=== PATIENT | male | born 1940 | race Caucasian/White ===

== ENCOUNTER 2019-08-04 19:17 | Inpatient (IN) ==
[2019-08-04] MEDS ORDERED: MULTI-VITAMIN INFUSION 10 ML, THIAMINE HCL 100 MG, FOLIC ACID 1 MG in SODIUM CHLORIDE 0... IV ONE (19:40)
[2019-08-04 19:59] LABS: Basophils # (auto) 0.06 K/uL (0-0.2); Eosinophils # (auto) 0.12 K/uL (0-0.5); Eosinophils % (auto) 1.9 %; Hematocrit (blood only) 42.9 % (42-52); Hemoglobin 14.9 g/dL (14.0-18.0); Immature Granulocytes # (auto) 0.01 K/uL (0.00-0.02); Immature Granulocytes % (auto) 0.2 %; Lymphocytes # (auto) 1.21 K/uL (1.2-3.4); Lymphocytes % (auto) 19.6 %; Mean Corpuscular Hemoglobin 31.9 pg (25-34); Mean Corpuscular Hgb Conc 34.7 g/dL (32-36); Mean Corpuscular Volume 91.9 fL (80-100); Mean Platelet Volume 10.1 fL (7.4-10.4); Monocytes # (auto) 0.37 K/uL (0.11-0.59); Neutrophils # (auto) 4.39 K/uL (1.4-6.5); Neutrophils % (auto) 71.3 %; Platelet Count 222 K/uL (130-400); RDW Coefficient of Variation 13.1 % (11.5-14.5); RDW Standard Deviation 43.8 fL (36.4-46.3); Red Blood Count 4.67 M/uL (4.7-6.1); White Blood Count 6.16 K/uL (4.8-10.8)
[2019-08-04 20:09] LABS: Prothrombin Time 10.7 Seconds (9.0-12.0)
[2019-08-04] MEDS ORDERED: fentaNYL citrate 100 MCG/2 ML VIAL IV STA (20:10)
[2019-08-04 20:15] LABS: Alanine Aminotransferase 32 U/L (12-78); Albumin Level 3.6 gm/dl (3.4-5.0); Aspartate Aminotransferase 21 U/L (15-37); BUN Creatinine Ratio 17.9 (10-20); Blood Urea Nitrogen 18 mg/dl (7-18); Calcium 8.6 mg/dl (8.5-10.1); Carbon Dioxide 27 mmol/L (21-32); Chloride 113 mmol/L (98-107); Creatinine Clr Calc Pharmacy 61.6 ml/min; Est GFR (African American) 81.2; Est GFR (Non-African American) 70.1; Glucose 106 mg/dl (70-99); Lipase 260 U/L (73-393); Magnesium 2.5 mg/dl (1.8-2.4); Sodium 147 mmol/L (136-145)
[2019-08-04 20:21] LABS: Albumin Globulin Ratio 1.2 (0.9-2); Alkaline Phosphatase 68 U/L (45-117); Bilirubin,Total 0.5 mg/dl (0.2-1); Globulin 3.1 gm/dl (2.5-4.0); Phosphorus 2.4 mg/dl (2.5-4.9); Total Protein 6.7 gm/dl (6.4-8.2); Troponin I < 0.015 ng/ml (0-0.045)
--- NOTE | 2019-08-04 20:59 | XRay Report ---
XR chest 1V portable CLINICAL HISTORY: Chest pain. Fall. COMPARISON STUDY: Chest radiograph August 19, 2015. FINDINGS: Dual lead left subclavian pacemaker is in place. There is mild cardiomegaly without evidenc e for pulmonary edema. There is no consolidation. There is no pneumothorax or pleural effusion. IMPRESSION: No acute cardiopulmonary findings. Electronically signed by: Denzel Leavitt M.D. 08/04/2019 8:58 PM
--- NOTE | 2019-08-04 21:11 | XRay Report ---
XR tibia fibula RT 2V CLINICAL HISTORY: pain fall COMPARISON: None FINDINGS: No proximal right tibial or fibular fracture is noted. Alignment of the right knee is pablito omic. Displaced angulated distal right tibial and fibular fractures with disruption of the ankle mort ise are better depicted on the right ankle radiographs. IMPRESSION: 1. Displaced angulated distal right tibial and fibular fractures with disruption of the ankle mortise which are better depicted on the right ankle radiographs. 2. No proximal right tibial or fibular fracture. Electronically signed by: Denzel Leavitt M.D. 08/04/2019 9:10 PM
--- NOTE | 2019-08-04 21:13 | XRay Report ---
XR ankle RT min 3V routine CLINICAL HISTORY: Pain following fall. COMPARISON: Right foot radiographs June 16, 2014. FINDINGS: Ankle mortise is disrupted. There is an acute displaced angulated fracture through the dis sue shaft of the right fibula. A fracture through the posterior distal right tibia is also noted. In addition, there may be a fracture through the medial malleolus. IMPRESSION: Fracture/dislocation deformity of the right ankle. Displaced angulated distal right fibul ar fracture with a fracture through the posterior malleolus and possible medial malleolus fracture. Electronically signed by: Denzel Leavitt M.D. 08/04/2019 9:12 PM
--- NOTE | 2019-08-04 21:15 | XRay Report ---
XR foot RT 2V CLINICAL HISTORY: Pain following fall. COMPARISON: Right foot radiographs June 16, 2014. FINDINGS: Displaced distal right tibial and fibular fractures with disruption of the ankle mortise a re better depicted on the right ankle radiographs. Tarsometatarsal joints are intact. There is a heal ed right fifth metatarsal fracture. 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 IMPRESSION: 1. Fracture/dislocation deformity of the right ankle which is better depicted on the right ankle radi ographs. 2. No additional fractures. Electronically signed by: Denzel Leavitt M.D. 08/04/2019 9:14 PM
[2019-08-04] MEDS ORDERED: THIAMINE HCL 100 MG in SYRINGE 9 ML IV STA (21:34)
[2019-08-04] MEDS ORDERED: SODIUM CHLORIDE 0.9% 1000ML 1,000 ML IV SCH (21:45)
--- NOTE | 2019-08-04 21:47 | CT Scan Report ---
CT OF THE HEAD WITHOUT CONTRAST CLINICAL HISTORY: etoh fall, pain COMPARISON STUDY: Head CT August 19, 2015. MRI of the brain July 12, 2019. CT DOSE: 1007.61 mGy.cm TECHNIQUE: Helical axial images of the head were obtained without IV contrast. Automated exposure con trol was utilized for the study. A dose lowering technique was utilized adhering to the principles o f ALARA. FINDINGS: No acute intracranial hemorrhage, midline shift or mass effect is present. The ventricular system is stable. Basilar cisterns are patent. There are no extra axial collections. Atrophy is again noted. There are no findings to suggest acute dural sinus thrombosis or acute territorial infarct. W jaison matter hypodensity suggests small vessel disease. The appearance of the brain is unchanged. Ther e is no calvarial fracture. IMPRESSION: 1. No acute intracranial findings. 2. No calvarial fracture. Electronically signed by: Denzel Leavitt M.D. 08/04/2019 9:46 PM
--- NOTE | 2019-08-04 21:56 | XRay Report ---
XR ankle RT min 3V routine CLINICAL HISTORY: post reduction COMPARISON: Right ankle radiographs August 04, 2019 at 8:30 PM. FINDINGS: These images demonstrate significant improvement in alignment of the right ankle fracture/ dislocation deformity. Alignment of the distal right fibular fracture as well as the posterior malleo iwona fracture has improved. There is mild residual ankle mortise widening. IMPRESSION: Significant interval improvement in alignment of the right ankle fracture/dislocation sin ce prior exam. Electronically signed by: Denzel Leavitt M.D. 08/04/2019 9:55 PM
--- NOTE | 2019-08-04 22:01 | CT Scan Report ---
CT OF THE CERVICAL SPINE WITHOUT CONTRAST CLINICAL HISTORY: etoh fall, pain COMPARISON STUDY: No previous studies for comparison. TECHNIQUE: Helical axial images of the cervical spine were obtained without IV contrast. Sagittal a nd coronal reconstructions were viewed. Automated exposure control was utilized for the study. A do se lowering technique was utilized adhering to the principles of ALARA. FINDINGS: Mild rotation of C1 on C2 is likely positional. No acute fracture is noted. The craniocervi abdi junction is intact. There is moderate multilevel degenerative disc disease and severe multilevel facet arthrosis within the cervical spine. There is no prevertebral edema. IMPRESSION: 1. No acute cervical spine fracture or subluxation. 2. Moderate multilevel degenerative disc disease and severe multilevel facet arthrosis within the cer vical spine. 3. Mild rotation of C1 on C2 is likely positional. Electronically signed by: Denzel Laevitt M.D. 08/04/2019 10:00 PM
--- NOTE | 2019-08-04 23:52 | History & Physical Report ---
Date of Service August 04, 2019 Assessment & Plan (1) Closed trimalleolar fracture: Likely secondary to mechanical fall secondary to alcoholism Status post closed reduction at that emergency room dementia/cognitive impairment 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 as per recent outpatient Neuro eval SSS sp PPM, paced rhythm, appropriate device function/longevity on recent outpatient [facility] cardio visit 05/2019 HTN, stable history PE/DVT status post Coumadin Medical telemetry given history of alcohol withdrawal Orthopedics consult RE right ankle fracture (ER provider already in touch with Dr. Werner.) Keep n.p.o. for now in anticipation of any procedure in a.m. No medical contraindication to surgery if recommended by Orthopedics and patient/family agreeable to attendant procedural benefits and risks. DT precautions DVT prophylaxis. SCDs for now RE possible surgery (Recommend pharmacologic anticoagulation postop with Lovenox 40 mg subcutaneous daily given past history PE/DVT once bleeding risk is deemed to be minimal and negligible following Orthopedics evaluation.) Full code as per . Patient's requesting updates from providers. Mrs.Tara Gordon, contact #[phone]. History of Present Illness Chief Complaint: Fall, right ankle pain Primary Care Provider: Valentin Sutherland MD History obtained from patient, family, and records. History somewhat limited from patient secondary to dementia. Medical history significant for dementia, SSS sp PPM, HTN, history PE status post Coumadin, ongoing alcohol abuse. Recent confinement July 2015 for alcohol withdrawal. Patient found on the floor by upon her arrival at home. Complaining right ankle pain after falling sometime in the afternoon. Patient does not think he passed out. Patient denies chest pain, S OB, headache symptoms. Closed reduction of right ankle fracture done at the emergency room. 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 Baseline Functionality : Still able to do yard work at home without rest/exertional chest pain, S OB prior to injury Allergies Allergy/AdvReac Type Severity Reaction Status Date / Time No Known Allergies Allergy Unverified 08/04/19 20:13 Home Medications Home Medications Medication Instructions Recorded Confirmed Type atorvastatin [Lipitor] 20 mg PO DAILY 08/04/19 08/04/19 History metoprolol tartrate 75 mg PO BID 08/04/19 08/04/19 History multivitamin 1 tab PO DAILY 08/04/19 08/04/19 History naltrexone 50 mg PO DAILY 08/04/19 08/04/19 History vitamin B complex 1 tab PO DAILY 08/04/19 08/04/19 History Past Med/Surg History Medical History Bilateral pulmonary embolism (Resolved 06/16/14) "completed 6 months Coumadin therapy" DVT (deep venous thrombosis) (Resolved) "completed 6 months Coumadin therapy" SSS (sick sinus syndrome) (Chronic) "s/p pacemaker 03/2015" Ankle fracture, right (Resolved) "s/p repair" Alcohol withdrawal delirium (Acute) Surgical History S/P left knee arthroscopy (Resolved) H/O vasectomy (Resolved) Social History Preferred Language: Divehi Communication Ability: Effective Communication Ability Comment: has been drinking [place] Required: No Beliefs That Will Affect Care: None Current Living Situation: Spouse Other Information That Helps Us Care for You: No Feels Safe at Home: Yes Safety Concerns: Feels Safe At This Time Smoking Status: Former smoker Do You Dip or Chew Tobacco: No ; Hx Alcohol Use: Yes Alcohol type: wine and hard liquor Hx Substance Use: No Review of Systems Review of Systems: Could not be reliably obtained Physical Exam Physical Exam: GENERAL: Comfortable, demented, no respiratory distress SKIN: Normal color, warm HEENT: [place] palpebral conjunctivae, no ptosis, dry buccal mucosa NECK : Supple, no tenderness CHEST : CTA, no tenderness HEART : RRR, systolic murmur ABDOMEN: Soft, nontender EXTREMITIES : RLE bandage, minimal RLE tenderness, no other conspicuous deformities noted NEUROLOGIC : Coherent, demented, slightly hard of hearing, no facial asymmetry, no other gross focality Results & Data Vital Signs (Past 12 Hours) Vital Signs Temp Pulse Resp BP Pulse Ox 08/04/19 23:00 72 15 123/83 95 08/04/19 22:31 71 14 94 08/04/19 22:30 71 12 125/91 94 08/04/19 22:17 71 18 129/94 94 08/04/19 22:00 36.7 C 71 22 129/94 96 08/04/19 21:01 71 15 97 08/04/19 21:00 71 21 137/96 99 08/04/19 20:31 71 17 93 08/04/19 20:30 71 16 122/93 95 08/04/19 20:01 70 12 93 08/04/19 20:00 69 13 128/92 94 08/04/19 19:56 94 08/04/19 19:31 72 20 93 08/04/19 19:30 72 12 127/94 95 08/04/19 19:28 73 12 95 08/04/19 19:27 36.7 C 81 20 136/105 H 96 08/04/19 19:25 75 15 136/105 H 98 Laboratory Results Laboratory Results WBC 6.16 K/uL (4.8-10.8) 08/04/19 19:50 RBC 4.67 M/uL (4.7-6.1) L 08/04/19 19:50 Hgb 14.9 g/dL (14.0-18.0) 08/04/19 19:50 Hct 42.9 % (42-52) 08/04/19 19:50 MCV 91.9 fL (80-100) 08/04/19 19:50 MCH 31.9 pg (25-34) 08/04/19 19:50 MCHC 34.7 g/dL (32-36) 08/04/19 19:50 RDW Std Deviation 43.8 fL (36.4-46.3) 08/04/19 19:50 RDW Coeff of Carina 13.1 % (11.5-14.5) 08/04/19 19:50 Plt Count 222 K/uL (130-400) 08/04/19 19:50 MPV 10.1 fL (7.4-10.4) 08/04/19 19:50 Immature Gran % (Auto) 0.2 % 08/04/19 19:50 Neut % (Auto) 71.3 % 08/04/19 19:50 Lymph % (Auto) 19.6 % 08/04/19 19:50 [place] % (Auto) 6.0 % 08/04/19 19:50 Eos % (Auto) 1.9 % 08/04/19 19:50 Baso % (Auto) 1.0 % 08/04/19 19:50 Immature Gran # (Auto) 0.01 K/uL (0.00-0.02) 08/04/19 19:50 Neut # (Auto) 4.39 K/uL (1.4-6.5) 08/04/19 19:50 Lymph # (Auto) 1.21 K/uL (1.2-3.4) 08/04/19 19:50 [place] # (Auto) 0.37 K/uL (0.11-0.59) 08/04/19 19:50 Eos # (Auto) 0.12 K/uL (0-0.5) 08/04/19 19:50 Baso # (Auto) 0.06 K/uL (0-0.2) 08/04/19 19:50 PT 10.7 Seconds (9.0-12.0) 08/04/19 19:50 INR 1.0 (0.9-1.1) 08/04/19 19:50 Sodium 147 mmol/L (136-145) H 08/04/19 19:50 Potassium 4.0 mmol/L (3.5-5.1) 08/04/19 19:50 Chloride 113 mmol/L (98-107) H 08/04/19 19:50 Carbon Dioxide 27 mmol/L (21-32) 08/04/19 19:50 Anion Gap 7.0 (3-11) 08/04/19 19:50 BUN 18 mg/dl (7-18) 08/04/19 19:50 Creatinine 1.02 mg/dl (0.6-1.4) 08/04/19 19:50 Est Cr Clr Drug Dosing 61.6 ml/min 08/04/19 19:50 Est GFR ( Amer) 81.2 08/04/19 19:50 Est GFR (Non-Af Amer) 70.1 08/04/19 19:50 BUN/Creatinine Ratio 17.9 (10-20) 08/04/19 19:50 Glucose 106 mg/dl (70-99) H 08/04/19 19:50 Calcium 8.6 mg/dl (8.5-10.1) 08/04/19 19:50 Phosphorus 2.4 mg/dl (2.5-4.9) L 08/04/19 19:50 Magnesium 2.5 mg/dl (1.8-2.4) H 08/04/19 19:50 Total Bilirubin 0.5 mg/dl (0.2-1) 08/04/19 19:50 AST 21 U/L (15-37) 08/04/19 19:50 ALT 32 U/L (12-78) 08/04/19 19:50 Alkaline Phosphatase 68 U/L (45-117) 08/04/19 19:50 Troponin I < 0.015 ng/ml (0-0.045) 08/04/19 19:50 Total Protein 6.7 gm/dl (6.4-8.2) 08/04/19 19:50 Albumin 3.6 gm/dl (3.4-5.0) 08/04/19 19:50 Globulin 3.1 gm/dl (2.5-4.0) 08/04/19 19:50 Albumin/Globulin Ratio 1.2 (0.9-2) 08/04/19 19:50 Lipase 260 U/L (73-393) 08/04/19 19:50 Ethyl Alcohol mg/dL 227.0 mg/dl (0-3) H 08/04/19 20:19 Diagnostic Findings Right ankle x-ray: Fracture/dislocation deformity of the right ankle. Displaced angulated distal right fibular fracture with a fracture through the posterior malleolus and possible medial malleolus fracture. CT head: 1. No acute intracranial findings. 2. No calvarial fracture. Cervical spine CT: 1. No acute cervical spine fracture or subluxation. 2. Moderate multilevel degenerative disc disease and severe multilevel facet arthrosis within the cervical spine. 3. Mild rotation of C1 on C2 is likely positional. Chest x-ray : No acute cardiopulmonary findings. EKG as per my interpretation : Rate 70, paced rhythm (1) Closed trimalleolar fracture Encounter type: initial encounter Laterality: right Qualified Code(s): S82.851A - Displaced trimalleolar fracture of right lower leg, initial encounter for closed fracture
[2019-08-05] MEDS ORDERED: NITROGLYCERIN SL 0.4 MG/TAB TAB SL PRN (00:46)
[2019-08-05] MEDS ORDERED: ACETAMINOPHEN 325 MG TAB PO PRN (00:46)
[2019-08-05] MEDS ORDERED: KETOROLAC TROMETHAMINE 15 MG/ML VIAL IV PRN (00:46)
[2019-08-05] MEDS ORDERED: LORazepam 2 MG/4 ML VIAL IV PRN (00:46)
[2019-08-05] MEDS ORDERED: OXYCODONE HCL IR 5 MG TAB (IMMEDIATE RELEASE) PO PRN (00:46)
[2019-08-05] MEDS ORDERED: PROMETHAZINE HCL 12.5 MG in SODIUM CHLORIDE 0.9% 50 ML IV PRN (00:46)
[2019-08-05] MEDS ORDERED: ATIVAN IV ALCOHOL WITHDRAWL IV SCH (00:46)
[2019-08-05] MEDS ORDERED: GABAPENTIN 1200MG ALCOHOL WITHDRAWAL LOAD PO STA (00:46)
[2019-08-05] MEDS ORDERED: LORazepam 3 MG/6 ML VIAL IV PRN (00:46)
[2019-08-05] MEDS ORDERED: LORazepam 1 MG/2 ML VIAL IV PRN (00:46)
[2019-08-05] MEDS ORDERED: GABAPENTIN 600 MG TAB PO STA (01:07)
[2019-08-05 01:44] LABS: Creatine Kinase 106 U/L (39-308)
[2019-08-05] MEDS ORDERED: PNEUMOCOCCAL ADMINISTRATION CHARGE ONE (02:30)
[2019-08-05] MEDS ORDERED: PNEUMOCOCCAL POLYSACCHARIDES 25 MCG/0.5 ML VIAL/SYR IM ONE (02:30)
[2019-08-05] MEDS: METOPROLOL TARTRATE 50 MG TAB PO SCH ×2 (02:54→19:55)
[2019-08-05] MEDS ORDERED: SODIUM CHLORIDE 0.45 % 1,000 ML IV SCH (03:00)
--- NOTE | 2019-08-05 03:18 | Emergency Department Note ---
Entered by Becca Eckert acting as a scribe for Terry Valle MD History of Present Illness General Chief complaint: Fall Stated complaint: FALL, R ANKLE PAIN, Time Seen by Provider: 08/04/19 19:32 Source: patient and family () History of Present Illness Provider complaint: ankle pain Onset (ago): minute(s) (prior to arrival) Location: ankle and right Maximum Pain Intensity: 4 Quality: + other (ankle pain) Treatments prior to arrival: none The patient, who is a 79 year old male with a medical history of DVT, SSS, and pulmonary embolism presents to the Emergency Room with complaints of right ankle pain that the states occurred at 1600. The patient admits that he is not sober. The patient's states that she came home and found him in his chair and not oriented. The patient's expresses that he talked to her for 20 minutes before he complained about his ankle pain. The patient states that he is unsure of the events that led to his ankle injury. The patient states that the patient has been through detox 3 times with the most recent being in 2017. The patient's states that he has been through withdraw that included shakes but no seizure. The patient's HPI is limited secondary to alcohol intoxication. Home Medications Home Medications Medication Instructions Recorded Confirmed Type atorvastatin [Lipitor] 20 mg PO DAILY 08/04/19 08/04/19 History metoprolol tartrate 75 mg PO BID 08/04/19 08/04/19 History multivitamin 1 tab PO DAILY 08/04/19 08/04/19 History naltrexone 50 mg PO DAILY 08/04/19 08/04/19 History vitamin B complex 1 tab PO DAILY 08/04/19 08/04/19 History Allergies Allergy/AdvReac Type Severity Reaction Status Date / Time No Known Allergies Allergy Unverified 08/04/19 20:13 Past Med/Surg History Medical History Bilateral pulmonary embolism (Resolved 06/16/14) "completed 6 months Coumadin therapy" DVT (deep venous thrombosis) (Resolved) "completed 6 months Coumadin therapy" SSS (sick sinus syndrome) (Chronic) "s/p pacemaker 03/2015" Ankle fracture, right (Resolved) "s/p repair" Alcohol withdrawal delirium (Acute) Surgical History S/P left knee arthroscopy (Resolved) H/O vasectomy (Resolved) Social History Preferred Language: Faroese Communication Ability: Effective Communication Ability Comment: has been drinking [employer] Required: No Beliefs That Will Affect Care: None Current Living Situation: Spouse Other Information That Helps Us Care for You: No Feels Safe at Home: Yes Safety Concerns: Feels Safe At This Time Smoking Status: Former smoker Do You Dip or Chew Tobacco: No ; Hx Alcohol Use: Yes Alcohol type: wine and hard liquor Hx Substance Use: No Review of Systems See HPI for pertinent positives & negatives. and A total of 10 systems reviewed and were otherwise negative Physical Exam Vital Signs Vital Signs - 24 hr 08/04/19 19:25 08/04/19 19:27 08/04/19 19:28 Temperature 36.7 C Temperature Source Oral Sepsis Recent Fever Within 48 Hours No Sepsis Action Taken by Nursing No Action Required Pulse Rate 75 81 73 Pulse Rate from SpO2 Sensor 77 73 Pulse Rhythm Regular Pulse Strength Normal Respiratory Rate 15 20 12 Respiratory Effort / Characteristics Non-Labored Spontaneous Respiratory Depth Normal Blood Pressure 136/105 H 136/105 H Blood Pressure Mean 115 115 Blood Pressure Position Sitting Pulse Oximetry 98 96 95 Oxygen Delivery Method Room Air Room Air Room Air 08/04/19 19:30 08/04/19 19:31 08/04/19 19:56 Temperature Temperature Source Sepsis Recent Fever Within 48 Hours Sepsis Action Taken by Nursing Pulse Rate 72 72 Pulse Rate from SpO2 Sensor 73 72 Pulse Rhythm Pulse Strength Respiratory Rate 12 20 Respiratory Effort / Characteristics Respiratory Depth Blood Pressure 127/94 Blood Pressure Mean 105 Blood Pressure Position Pulse Oximetry 95 93 94 Oxygen Delivery Method Room Air Room Air Room Air 08/04/19 20:00 08/04/19 20:01 08/04/19 20:30 Temperature Temperature Source Sepsis Recent Fever Within 48 Hours Sepsis Action Taken by Nursing Pulse Rate 69 70 71 Pulse Rate from SpO2 Sensor 70 70 72 Pulse Rhythm Pulse Strength Respiratory Rate 13 12 16 Respiratory Effort / Characteristics Respiratory Depth Blood Pressure 128/92 122/93 Blood Pressure Mean 104 102 Blood Pressure Position Pulse Oximetry 94 93 95 Oxygen Delivery Method Room Air Room Air Room Air 08/04/19 20:31 08/04/19 21:00 08/04/19 21:01 Temperature Temperature Source Sepsis Recent Fever Within 48 Hours Sepsis Action Taken by Nursing Pulse Rate 71 71 71 Pulse Rate from SpO2 Sensor 71 72 71 Pulse Rhythm Pulse Strength Respiratory Rate 17 21 15 Respiratory Effort / Characteristics Respiratory Depth Blood Pressure 137/96 Blood Pressure Mean 109 Blood Pressure Position Pulse Oximetry 93 99 97 Oxygen Delivery Method Room Air Room Air Room Air 08/04/19 22:00 08/04/19 22:17 08/04/19 22:30 Temperature 36.7 C Temperature Source Sepsis Recent Fever Within 48 Hours Sepsis Action Taken by Nursing Pulse Rate 71 71 71 Pulse Rate from SpO2 Sensor 71 71 69 Pulse Rhythm Pulse Strength Respiratory Rate 22 18 12 Respiratory Effort / Characteristics Respiratory Depth Blood Pressure 129/94 129/94 125/91 Blood Pressure Mean 105 105 102 Blood Pressure Position Pulse Oximetry 96 94 94 Oxygen Delivery Method Room Air Room Air Room Air 08/04/19 22:31 08/04/19 23:00 08/04/19 23:30 Temperature Temperature Source Sepsis Recent Fever Within 48 Hours Sepsis Action Taken by Nursing Pulse Rate 71 72 71 Pulse Rate from SpO2 Sensor 71 73 Pulse Rhythm Pulse Strength Respiratory Rate 14 15 14 Respiratory Effort / Characteristics Respiratory Depth Blood Pressure 123/83 116/80 Blood Pressure Mean 96 92 Blood Pressure Position Pulse Oximetry 94 95 96 Oxygen Delivery Method Room Air Room Air Room Air GENERAL: Awake, alert, uncomfortable-appearing, in no distress HENT: Normocephalic, atraumatic. Oropharynx with dry mucous membranes and otherwise unremarkable. EYES: Normal conjunctiva. Sclera non-icteric. EOMI. No nystamgus. PEARRL. NECK: Supple. No nuchal rigidity. FROM. No JVD. RESPIRATORY: CTAB. CARDIAC: Regular rate, normal rhythm. Extremities warm and well perfused. Pulses equal. ABDOMEN: Soft, non-distended. No tenderness to palpation. No rebound or guarding. No masses. RECTAL: Deferred. MUSCULOSKELETAL: Chest examination reveals no tenderness. The back is symmetrical on inspection without obvious abnormality. There is no CVA tenderness to palpation. No joint edema. LOWER EXTREMITIES: Right ankle deformity with swelling and with tenting of sking of medial malleolus. Palpable DP pulses. Distal PMS intact. Full range of motion to the hips and knees bilaterally. NEURO: Normal sensorium. No sensory or motor deficits noted. SKIN: No rash or jaundice noted. Procedures Orthopedic Fracture Reduction Fracture #1: Time Out Performed: Yes Side: right Fracture Reduction Location: other (ankle) Analgesia: other (IV fentanol) Technique: direct manipulation and traction/counter-traction Post Reduction X-rays Demonstrate: acceptable reduction Post-reduction neuro exam: intact Post-reduction vascular exam: intact Splint Applied: Yes Patient Tolerated Procedure: well Course 1935: Past medical records reviewed. The patient was evaluated in room C4. A complete history and physical exam was performed. 2253: I reviewed the patient's case with Jesus Goins Hospitalist. He will evaluate the patient for further management. 2258: I reviewed the patient's case with Dr. Werner, Orthopedics who will evaluate the patient in the morning. Consultations Consultation #1: [facility] the [facility] the patient for further management. Time: 22:53 Consultation #2: I reviewed the patient's case with Dr. Werner, Orthopedics who will evaluate the patient in the morning. Time: 22:58 Administered Medications Sodium Chloride (1/2 Nss) 1,000 mls @ 50 mls/hr IV .Q20H FUNMI Stop: 09/04/19 02:59 Last Admin: 08/05/19 02:34 Dose: 50 mls/hr Documented by: [id number] Metoprolol Tartrate (Lopressor) 75 mg PO BID FUNMI Stop: 09/04/19 00:45 Last Admin: 08/05/19 02:54 Dose: 75 mg Documented by: [id number] Discontinued Medications Fentanyl Citrate (Fentanyl Citrate) 100 mcg IV NOW STA Stop: 08/04/19 20:11 Last Admin: 08/04/19 20:51 Dose: 100 mcg Documented by: [id number] Gabapentin (Neurontin) 1,200 mg PO NOW STA Stop: 08/05/19 01:08 Last Admin: 08/05/19 01:53 Dose: 1,200 mg Documented by: [id number] Multivitamins 10 ml/ Thiamine HCl 100 mg/ Folic Acid 1 mg/Sodium Chloride 1,011.2 mls @ 1,011.2 mls/hr IV .Q1H ONE Stop: 08/04/19 20:39 Last Infusion: 08/04/19 21:16 Dose: 0 mls/hr Documented by: [id number] Admin: 08/04/19 20:16 Dose: 1,011.2 mls/hr Documented by: [id number] Sodium Chloride (Nss 1000ml) 1,000 mls @ 250 mls/hr IV .Q4H FUNMI Stop: 09/03/19 21:44 Last Infusion: 08/05/19 02:48 Dose: 0 mls/hr Documented by: [id number] Admin: 08/04/19 22:01 Dose: 250 mls/hr Documented by: [id number] Thiamine HCl 100 mg/ Syringe 10 mls @ 2 mls/min IV NOW STA Stop: 08/04/19 21:38 Last Admin: 08/04/19 22:02 Dose: 2 mls/min Documented by: [id number] Medical Decision Making Differential Diagnosis Differential diagnosis includes: fracture, dislocation, neurovascular compromise, compartment syndrome, soft tissue injury, as well as others were entertained. Medical Records Attestation: I reviewed the patient's medical records. Home Medications Current Medication List: was personally reviewed by me Laboratory Data Attestation: I reviewed the patient's lab results. Result diagrams: 08/04/19 19:50 08/04/19 19:50 Lab Results 08/04/19 08/04/19 08/04/19 Range/Units 19:50 19:50 19:50 WBC 6.16 (4.8-10.8) K/uL RBC 4.67 L (4.7-6.1) M/uL Hgb 14.9 (14.0-18.0) g/dL Hct 42.9 (42-52) % MCV 91.9 (80-100) fL MCH 31.9 (25-34) pg MCHC 34.7 (32-36) g/dL RDW Std Deviation 43.8 (36.4-46.3) fL RDW Coeff of Carina 13.1 (11.5-14.5) % Plt Count 222 (130-400) K/uL MPV 10.1 (7.4-10.4) fL Immature Gran % (Auto) 0.2 % Neut % (Auto) 71.3 % Lymph % (Auto) 19.6 % Cameron % (Auto) 6.0 % Eos % (Auto) 1.9 % Baso % (Auto) 1.0 % Immature Gran # (Auto) 0.01 (0.00-0.02) K/uL Neut # (Auto) 4.39 (1.4-6.5) K/uL Lymph # (Auto) 1.21 (1.2-3.4) K/uL Cameron # (Auto) 0.37 (0.11-0.59) K/uL Eos # (Auto) 0.12 (0-0.5) K/uL Baso # (Auto) 0.06 (0-0.2) K/uL PT 10.7 (9.0-12.0) Seconds INR 1.0 (0.9-1.1) Sodium 147 H (136-145) mmol/L Potassium 4.0 (3.5-5.1) mmol/L Chloride 113 H (98-107) mmol/L Carbon Dioxide 27 (21-32) mmol/L Anion Gap 7.0 (3-11) BUN 18 (7-18) mg/dl Creatinine 1.02 (0.6-1.4) mg/dl Est Cr Clr Drug Dosing 61.6 ml/min Est GFR ( Amer) 81.2 Est GFR (Non-Af Amer) 70.1 BUN/Creatinine Ratio 17.9 (10-20) Glucose 106 H (70-99) mg/dl Calcium 8.6 (8.5-10.1) mg/dl Phosphorus 2.4 L (2.5-4.9) mg/dl Magnesium 2.5 H (1.8-2.4) mg/dl Total Bilirubin 0.5 (0.2-1) mg/dl AST 21 (15-37) U/L ALT 32 (12-78) U/L Alkaline Phosphatase 68 (45-117) U/L Total Creatine Kinase 106 (39-308) U/L Troponin I < 0.015 (0-0.045) ng/ml Total Protein 6.7 (6.4-8.2) gm/dl Albumin 3.6 (3.4-5.0) gm/dl Globulin 3.1 (2.5-4.0) gm/dl Albumin/Globulin Ratio 1.2 (0.9-2) Lipase 260 (73-393) U/L Ethyl Alcohol mg/dL (0-3) mg/dl 08/04/19 Range/Units 20:19 WBC (4.8-10.8) K/uL RBC (4.7-6.1) M/uL Hgb (14.0-18.0) g/dL Hct (42-52) % MCV (80-100) fL MCH (25-34) pg MCHC (32-36) g/dL RDW Std Deviation (36.4-46.3) fL RDW Coeff of Carina (11.5-14.5) % Plt Count (130-400) K/uL MPV (7.4-10.4) fL Immature Gran % (Auto) % Neut % (Auto) % Lymph % (Auto) % Cameron % (Auto) % Eos % (Auto) % Baso % (Auto) % Immature Gran # (Auto) (0.00-0.02) K/uL Neut # (Auto) (1.4-6.5) K/uL Lymph # (Auto) (1.2-3.4) K/uL Cameron # (Auto) (0.11-0.59) K/uL Eos # (Auto) (0-0.5) K/uL Baso # (Auto) (0-0.2) K/uL PT (9.0-12.0) Seconds INR (0.9-1.1) Sodium (136-145) mmol/L Potassium (3.5-5.1) mmol/L Chloride (98-107) mmol/L Carbon Dioxide (21-32) mmol/L Anion Gap (3-11) BUN (7-18) mg/dl Creatinine (0.6-1.4) mg/dl Est Cr Clr Drug Dosing ml/min Est GFR ( Amer) Est GFR (Non-Af Amer) BUN/Creatinine Ratio (10-20) Glucose (70-99) mg/dl Calcium (8.5-10.1) mg/dl Phosphorus (2.5-4.9) mg/dl Magnesium (1.8-2.4) mg/dl Total Bilirubin (0.2-1) mg/dl AST (15-37) U/L ALT (12-78) U/L Alkaline Phosphatase (45-117) U/L Total Creatine Kinase (39-308) U/L Troponin I (0-0.045) ng/ml Total Protein (6.4-8.2) gm/dl Albumin (3.4-5.0) gm/dl Globulin (2.5-4.0) gm/dl Albumin/Globulin Ratio (0.9-2) Lipase (73-393) U/L Ethyl Alcohol mg/dL 227.0 H (0-3) mg/dl Imaging Data Radiologist's Impression: Radiology results as stated below per my review and the radiologist's interpretation: XR ankle RT min 3V routine CLINICAL HISTORY: Pain following fall. COMPARISON: Right foot radiographs June 16, 2014. FINDINGS: Ankle mortise is disrupted. There is an acute displaced angulated fracture through the distal shaft of the right fibula. A fracture through the posterior distal right tibia is also noted. In addition, there may be a fracture through the medial malleolus. IMPRESSION: Fracture/dislocation deformity of the right ankle. Displaced angulated distal right fibular fracture with a fracture through the posterior malleolus and possible medial malleolus fracture. Electronically signed by: Denzel Leavitt M.D. 08/04/2019 9:12 PM XR tibia fibula RT 2V CLINICAL HISTORY: pain fall COMPARISON: None FINDINGS: No proximal right tibial or fibular fracture is noted. Alignment of the right knee is anatomic. Displaced angulated distal right tibial and fibular fractures with disruption of the ankle mortise are better depicted on the right ankle radiographs. IMPRESSION: 1. Displaced angulated distal right tibial and fibular fractures with disruption of the ankle mortise which are better depicted on the right ankle radiographs. 2. No proximal right tibial or fibular fracture. Electronically signed by: Denzel Leavitt M.D. 08/04/2019 9:10 PM XR foot RT 2V CLINICAL HISTORY: Pain following fall. COMPARISON: Right foot radiographs June 16, 2014. FINDINGS: Displaced distal right tibial and fibular fractures with disruption of the ankle mortise are better depicted on the right ankle radiographs. Tarsometatarsal joints are intact. There is a healed right fifth metatarsal fracture. 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 IMPRESSION: 1. Fracture/dislocation deformity of the right ankle which is better depicted on the right ankle radiographs. 2. No additional fractures. Electronically signed by: Denzel Leavitt M.D. 08/04/2019 9:14 PM XR chest 1V portable CLINICAL HISTORY: Chest pain. Fall. COMPARISON STUDY: Chest radiograph August 19, 2015. FINDINGS: Dual lead left subclavian pacemaker is in place. There is mild cardiomegaly without evidence for pulmonary edema. There is no consolidation. There is no pneumothorax or pleural effusion. IMPRESSION: No acute cardiopulmonary findings. Electronically signed by: Denzel Leavitt M.D. 08/04/2019 8:[address] OF THE CERVICAL SPINE WITHOUT CONTRAST CLINICAL HISTORY: etoh fall, pain COMPARISON STUDY: No previous studies for comparison. TECHNIQUE: Helical axial images of the cervical spine were obtained without IV contrast. Sagittal and coronal reconstructions were viewed. Automated exposure control was utilized for the study. A dose lowering technique was utilized adhering to the principles of ALARA. FINDINGS: Mild rotation of C1 on C2 is likely positional. No acute fracture is noted. The craniocervical junction is intact. There is moderate multilevel degenerative disc disease and severe multilevel facet arthrosis within the cervical spine. There is no prevertebral edema. IMPRESSION: 1. No acute cervical spine fracture or subluxation. 2. Moderate multilevel degenerative disc disease and severe multilevel facet arthrosis within the cervical spine. 3. Mild rotation of C1 on C2 is likely positional. Electronically signed by: Denzel Leavitt M.D. 08/04/2019 10:[address] OF THE HEAD WITHOUT CONTRAST CLINICAL HISTORY: etoh fall, pain COMPARISON STUDY: Head CT August 19, 2015. MRI of the brain July 12, 2019. CT DOSE: 1007.61 mGy.cm TECHNIQUE: Helical axial images of the head were obtained without IV contrast. Automated exposure control was utilized for the study. A dose lowering technique was utilized adhering to the principles of ALARA. FINDINGS: No acute intracranial hemorrhage, midline shift or mass effect is present. The ventricular system is stable. Basilar cisterns are patent. There are no extra axial collections. Atrophy is again noted. There are no findings to suggest acute dural sinus thrombosis or acute territorial infarct. White matter hypodensity suggests small vessel disease. The appearance of the brain is unchanged. There is no calvarial fracture. IMPRESSION: 1. No acute intracranial findings. 2. No calvarial fracture. Electronically signed by: Denzel Leavitt M.D. 08/04/2019 9:46 PM XR ankle RT min 3V routine CLINICAL HISTORY: post reduction COMPARISON: Right ankle radiographs August 04, 2019 at 8:30 PM. FINDINGS: These images demonstrate significant improvement in alignment of the right ankle fracture/dislocation deformity. Alignment of the distal right fibular fracture as well as the posterior malleolus fracture has improved. There is mild residual ankle mortise widening. IMPRESSION: Significant interval improvement in alignment of the right ankle fracture/dislocation since prior exam. Electronically signed by: Denzel Leavitt M.D. 08/04/2019 9:55 PM ECG Data Attestation: I personally reviewed and interpreted this ECG as follows: Indication: other (fall) Rate (beats per minute): 70 Rhythm: other (AV dual pace rhythm) Findings: + other (No overt acute ischemia); no ectopy Blood Pressure Blood Pressure Findings: Normal blood pressure MDM Narrative The patient is a 79 y/o gentleman with a pmhx of etoh abuse, dependence, withdrawal who presents to the emergency department acommpanied by his with unwitnessed fall with right ankle deformity and pain per HPI. On arrival the patient is in NAD, AFVSS. On exam, right ankle deformity with swelling and with tenting of skin of medial malleolus. Palpable DP pulses. Distal PMS intact. Despite deformity patient does not complain of much pain given his etoh intoxication. EKG without evidence of acute ischemia. CXR negative. Plain films of Tib-fib, ankle, and foot demonstrate displaced angulated distal right fibular fracture with a fracture through the posterior malleolus and possible medial malleolus fracture. WBC, H/H, platelets wnl. Chemistry without acidosis. Sodium 147 c/w patient's clinically dry appearance. Otherwise, LFTs and electrolytes unremarkable. Troponin negative. Etoh 227. CT head and cspine negative. Ankle reduced per procedure note without complication and improved alignment with resolution of skin tenting. Distal PMS intact. Given patient's ankle fracture is complicated by his etoh dependence, reasonable to admit patient for further management. Patient reports he is interested in detox this admission. Case was discussed with Dr. Bill, [facility] hospitalist, who will evaluate the patient for admission. Case d/w Dr. Delgadillo, [facility] ortho oncall, and [facility] will evaluate patient tomorrow. Impression & Plan Closed trimalleolar fracture, Hypernatremia, Alcohol dependence Discharge Plan Visit Data *Final* Discharge Date/Time: 08/05/19 00:16 Chief Complaint: Fall Stated Complaint: FALL, R ANKLE PAIN, ED Provider: Terry Valle Discharge Problem: Closed trimalleolar fracture, Hypernatremia, Alcohol dependence Patient Disposition: Admitted As Inpatient Discharge Instructions Interventions: ED Discharge Assessment Last Done: 08/05/19 00:16 Discharge Problem: Closed trimalleolar fracture Qualifiers: Encounter type: initial encounter Laterality: right Qualified Code(s): S82.851A - Displaced trimalleolar fracture of right lower leg, initial encounter for closed fracture Alcohol dependence Qualifiers: Substance use status: with intoxication Complication of substance-induced condition: with unspecified complication Qualified Code(s): F10.229 - Alcohol dependence with intoxication, unspecified The scribe's documentation has been prepared under my direction and personally reviewed by me in its entirety. I confirm that the note above accurately reflects all work, treatment, procedures, and medical decision making performed by me.
[2019-08-05 06:15] LABS: Basophils # (auto) 0.04 K/uL (0-0.2); Basophils % (auto) 0.5 %; Eosinophils # (auto) 0.25 K/uL (0-0.5); Eosinophils % (auto) 2.9 %; Hematocrit (blood only) 36.1 % (42-52); Hemoglobin 13.1 g/dL (14.0-18.0); Immature Granulocytes # (auto) 0.01 K/uL (0.00-0.02); Immature Granulocytes % (auto) 0.1 %; Lymphocytes # (auto) 1.83 K/uL (1.2-3.4); Mean Corpuscular Hemoglobin 33.8 pg (25-34); Mean Corpuscular Hgb Conc 36.3 g/dL (32-36); Mean Platelet Volume 9.9 fL (7.4-10.4); Monocytes # (auto) 0.55 K/uL (0.11-0.59); Monocytes % (auto) 6.3 %; Neutrophils # (auto) 6.04 K/uL (1.4-6.5); Neutrophils % (auto) 69.2 %; Platelet Count 193 K/uL (130-400); RDW Coefficient of Variation 13.3 % (11.5-14.5); RDW Standard Deviation 45.1 fL (36.4-46.3); Red Blood Count 3.88 M/uL (4.7-6.1); White Blood Count 8.72 K/uL (4.8-10.8)
[2019-08-05 06:23] LABS: Calcium 7.8 mg/dl (8.5-10.1); Creatinine Clr Calc Pharmacy 71.4 ml/min; Est GFR (African American) 95.4; Est GFR (Non-African American) 82.3; Potassium 3.8 mmol/L (3.5-5.1)
[2019-08-05] MEDS: MULTIVITAMIN TAB PO SCH (08:04)
[2019-08-05] MEDS: GABAPENTIN 600 MG TAB PO SCH ×3 (08:05→19:56)
[2019-08-05] MEDS: ATORVASTATIN 20 MG TAB PO SCH (08:05)
[2019-08-05] MEDS: FOLIC ACID 1 MG TAB PO SCH (08:05)
[2019-08-05] MEDS: VITAMIN B COMPLEX TAB PO SCH (08:06)
[2019-08-05] MEDS: NALTREXONE HCL 50 MG TAB PO SCH (08:06)
--- NOTE | 2019-08-05 09:30 | Orthopedic Consultation ---
Date of Consultation August 05, 2019 Assessment & Plan (1) Closed trimalleolar fracture: He has a severe injury to his right ankle with a trimalleolar equivalent ankle fracture dislocation. This will require ORIF for optimal function in the future and the ability to ambulate. However, this is a difficult medical situation. He is at high risk for alcohol withdrawal and delirium tremens. He currently does not have any tremors or agitation, but I am worried that this might develop. He has other significant medical problems, including a pacemaker placement and history of DVT with PE. He also has very poor insight into his injury. I had a long discussion with the patient's regarding all this. We therefore mutually agreed to observe him throughout the day today to see if he goes into significant withdraw. If he does, we will have to delay his surgery a few days. If he does not, we could plan to fix his ankle tomorrow. I stressed to the patient and his however that he must remain nonweightbearing on this right ankle after the surgery, or there would be a high risk of hardware failure, which could lead to severe complications. I think this will be the main issue after surgery due to his cognitive impairment and poor insight. Risks, benefits, and alternatives of surgery were explained in detail. The surgical procedure, as well as postoperative recovery and rehabilitation, was also explained in detail. Risks include bleeding; infection; damage to surro unding structures such as nerves, blood vessels, and tendons that run in the area; persistent pain or stiffness; nonunion; malunion; hardware failure; post- traumatic arthritis; painful prominent hardware requiring removal; or need for further surgery. He and the patient's understand all of this and wish to proceed with surgery. Verbal consent was obtained over the phone with the patient's due to the patient's disorientation. History of Present Illness Reason for Consultation: Right ankle fracture Attending Physician: Chai Craig MD History of Present Illness Mr. Gordon is a 79-year-old male with a long history of alcohol abuse who injured his right ankle yesterday. It is unknown the exact mechanism of injury. The patient has no recollection of the injury whatsoever. He was intoxicated at the time. He is disoriented currently, saying it is 1985 and he has no idea of the month, date, or day of the week. He is unaware of any significant injury to his right ankle, and thinks he is fine. I spoke with the patient's , Camila De La Cruz ([phone]), to get more information. She stated that she came home from work around 6:00 last night and found him in his recliner. He had an obvious injury to his right ankle, but she is unsure of where the patient fell or when. She states that he has had a long history of alcohol abuse. He has been through hospital detoxification and delirium tremens at least 4 times in the past, each hospitalization lasting around 10 days. She states that he does have cognitive impairment at baseline, and normally cannot remember the date or day of week, but he usually knows the month and year. She says that normally when he drinks, he drinks around 20 alcoholic drinks in a day, usually hard liquor. She says that he will often go for a few weeks without drinking, then drink on and off very heavily for about a week and a half. Allergies Allergy/AdvReac Type Severity Reaction Status Date / Time No Known Allergies Allergy Unverified 08/04/19 20:13 Home Medications Home Medications Medication Instructions Recorded Confirmed Type atorvastatin [Lipitor] 20 mg PO DAILY 08/04/19 08/04/19 History metoprolol tartrate 75 mg PO BID 08/04/19 08/04/19 History multivitamin 1 tab PO DAILY 08/04/19 08/04/19 History naltrexone 50 mg PO DAILY 08/04/19 08/04/19 History vitamin B complex 1 tab PO DAILY 08/04/19 08/04/19 History Patient History Medical History Bilateral pulmonary embolism (Resolved 06/16/14) "completed 6 months Coumadin therapy" DVT (deep venous thrombosis) (Resolved) "completed 6 months Coumadin therapy" SSS (sick sinus syndrome) (Chronic) "s/p pacemaker 03/2015" Ankle fracture, right (Resolved) "s/p repair" Alcohol withdrawal delirium (Acute) Surgical History S/P left knee arthroscopy (Resolved) H/O vasectomy (Resolved) Social History Preferred Language: Trinidadian Communication Ability: Effective Communication Ability Comment: 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 He is not aware of his location. He knows he is in the hospital, but does not know which hospital. He is unaware of the year, saying it is 1985. He has no idea of the month, date, or day of week. He is unaware of any significant injury to his right ankle. Musculoskeletal: Examination of his right ankle reveals that a well molded splint is in place. He denies any discomfort in the splint. Foot is warm and well-perfused. Motor and sensory function is intact in the superficial peroneal, deep peroneal, and tibial nerve distributions. Compartments are soft and compressible. Results & Data Vital Signs (Past 12 Hours) Vital Signs Temp Pulse Pulse Resp BP BP BP 08/05/19 07:37 36.8 C 75 20 147/91 H 08/05/19 03:59 36.6 C 72 16 131/79 08/05/19 00:16 70 14 123/80 08/05/19 00:15 36.5 C 71 20 147/94 H 144/100 H 08/04/19 23:30 71 14 116/80 08/04/19 23:00 72 15 123/83 08/04/19 22:31 71 14 08/04/19 22:30 71 12 125/91 08/04/19 22:17 71 18 129/94 08/04/19 22:00 36.7 C 71 22 129/94 Pulse Ox 08/05/19 07:37 96 08/05/19 03:59 95 08/05/19 00:16 94 08/05/19 00:15 97 08/04/19 23:30 96 08/04/19 23:00 95 08/04/19 22:31 94 08/04/19 22:30 94 08/04/19 22:17 94 08/04/19 22:00 96 Radiology: Pre-and post reduction x-rays were reviewed. They show a trimalleolar equivalent ankle fracture dislocation. He has disruption of the deltoid ligament, but no medial malleolar fracture fracture. He has a large posterior malleolar fracture. He has a long oblique fibula fracture. He has good reduction of the joint and acceptable alignment of the fracture after reduction in the emergency department. (1) Closed trimalleolar fracture Encounter type: initial encounter Laterality: right Qualified Code(s): S82.851A - Displaced trimalleolar fracture of right lower leg, initial encounter for closed fracture
[2019-08-05] MEDS ORDERED: LORazepam 0.5 MG TAB PO PRN (09:40)
[2019-08-05] MEDS: HEPARIN SOD 5,000 UNIT/0.5 ML VIAL SQ SCH ×2 (13:27→19:56)
--- NOTE | 2019-08-05 18:28 | Hospitalist Progress Note ---
Date of Service August 05, 2019 Assessment & Plan (1) Closed trimalleolar fracture: Likely secondary to mechanical fall secondary to alcoholism Status post closed reduction at that emergency room Status post casting -Discussed with orthopedic surgery service Plan for possible surgical intervention ORIF tomorrow No medical contraindication for planned surgical procedure unless patient exhibits overt alcohol withdrawal/delirium tremens overnight Alcoholism Last drink was yesterday, alcohol level 200s -No overt signs and symptoms of withdrawal at this time Closely monitor -Continue alcohol withdrawal protocol including gabapentin protocol, PRN Ativan dementia/cognitive impairment 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 as per recent outpatient Neuro eval -Oriented x3, answers most questions appropriately SSS sp PPM, paced rhythm - appropriate device function/longevity on recent outpatient [facility] [place] cardio visit 05/2019 HTN, stable -Continue metoprolol history PE/DVT status post Coumadin -Start heparin subcutaneous, hold at 12 midnight for possible surgery tomorrow morning DVT prophylaxis SCDs and heparin to be held at midnight (Recommend pharmacologic anticoagulation postop with Lovenox 40 mg subcutaneous daily given past history PE/DVT once bleeding risk is deemed to be minimal and negligible following Orthopedics evaluation.) Subjective Follow-up for trimalleolar ankle fracture/dislocation Seen resting in bed, comfortable, oriented x3, answers most questions appropriately Reports minimal pain on the right ankle and foot Denies chest pain, shortness of breath, palpitations, dizziness Denies tremors, anxiety, hallucinations, sweating No other symptoms Review of Systems Review of Systems: All systems reviewed & are unremarkable except as noted in HPI & below Physical Exam Physical Exam: General- oriented x 3, not in distress, speaks in sentences with no effort or accessory muscle use Head- atraumatic Eyes- PERRL, EOMI, anicteric ENT- oropharynx clear Neck- supple, no JVD, no adenopathy, no thyromegaly; carotids +2/2, no bruits appreciated Lungs- clear to auscultation bilaterally, no rales/wheezes Heart- normal rate, regular rhythm; no murmur, no gallop, no rub appreciated Abdomen- normal bowel sounds, nondistended, soft, nontender, no masses or hepatosplenomegaly Extremities-right lower extremity: Cast in place Left lower extremity: Essentially normal No hand tremors Neuro- alert, oriented x 3; CN 2-12 grossly intact; motor 5/5 bilaterally;sensation 100% on all extremities; no other gross focal neurologic deficits Skin- warm & dry Results & Data Vital Signs (Past 12 Hours) Vital Signs Temp Pulse Pulse Resp BP Pulse Ox 08/05/19 16:25 36.6 C 72 18 162/98 H 96 08/05/19 15:00 70 08/05/19 11:48 36.3 C L 70 20 106/68 94 08/05/19 07:37 36.8 C 75 20 147/91 H 96 Laboratory Results Laboratory Results - last 24 hr 08/04/19 08/04/19 08/04/19 19:50 19:50 19:50 WBC 6.16 RBC 4.67 L Hgb 14.9 Hct 42.9 MCV 91.9 MCH 31.9 MCHC 34.7 RDW Std Deviation 43.8 RDW Coeff of Carina 13.1 Plt Count 222 MPV 10.1 Immature Gran % (Auto) 0.2 Neut % (Auto) 71.3 Lymph % (Auto) 19.6 [place] % (Auto) 6.0 Eos % (Auto) 1.9 Baso % (Auto) 1.0 Immature Gran # (Auto) 0.01 Neut # (Auto) 4.39 Lymph # (Auto) 1.21 [place] # (Auto) 0.37 Eos # (Auto) 0.12 Baso # (Auto) 0.06 PT 10.7 INR 1.0 Sodium 147 H Potassium 4.0 Chloride 113 H Carbon Dioxide 27 Anion Gap 7.0 BUN 18 Creatinine 1.02 Est Cr Clr Drug Dosing 61.6 Est GFR ( Amer) 81.2 Est GFR (Non-Af Amer) 70.1 BUN/Creatinine Ratio 17.9 Glucose 106 H Calcium 8.6 Phosphorus 2.4 L Magnesium 2.5 H Total Bilirubin 0.5 AST 21 ALT 32 Alkaline Phosphatase 68 Total Creatine Kinase 106 Troponin I < 0.015 Total Protein 6.7 Albumin 3.6 Globulin 3.1 Albumin/Globulin Ratio 1.2 Lipase 260 Ethyl Alcohol mg/dL Blood Type Antibody Screen 08/04/19 08/05/19 08/05/19 20:19 05:21 05:21 WBC 8.72 RBC 3.88 L Hgb 13.1 L Hct 36.1 L MCV 93.0 MCH 33.8 MCHC 36.3 H RDW Std Deviation 45.1 RDW Coeff of Carina 13.3 Plt Count 193 MPV 9.9 Immature Gran % (Auto) 0.1 Neut % (Auto) 69.2 Lymph % (Auto) 21.0 [place] % (Auto) 6.3 Eos % (Auto) 2.9 Baso % (Auto) 0.5 Immature Gran # (Auto) 0.01 Neut # (Auto) 6.04 Lymph # (Auto) 1.83 [place] # (Auto) 0.55 Eos # (Auto) 0.25 Baso # (Auto) 0.04 PT INR Sodium 148 H Potassium 3.8 Chloride 116 H Carbon Dioxide 28 Anion Gap 5.0 BUN 15 Creatinine 0.88 Est Cr Clr Drug Dosing 71.4 Est GFR ( Amer) 95.4 Est GFR (Non-Af Amer) 82.3 BUN/Creatinine Ratio 17.0 Glucose 79 Calcium 7.8 L Phosphorus Magnesium Total Bilirubin AST ALT Alkaline Phosphatase Total Creatine Kinase Troponin I Total Protein Albumin Globulin Albumin/Globulin Ratio Lipase Ethyl Alcohol mg/dL 227.0 H Blood Type Antibody Screen 08/05/19 08/05/19 08/05/19 05:21 05:21 13:45 WBC RBC Hgb Hct MCV MCH MCHC RDW Std Deviation RDW Coeff of Carina Plt Count MPV Immature Gran % (Auto) Neut % (Auto) Lymph % (Auto) [place] % (Auto) Eos % (Auto) Baso % (Auto) Immature Gran # (Auto) Neut # (Auto) Lymph # (Auto) [place] # (Auto) Eos # (Auto) Baso # (Auto) PT INR Sodium 145 Potassium Chloride Carbon Dioxide Anion Gap BUN Creatinine Est Cr Clr Drug Dosing Est GFR ( Amer) Est GFR (Non-Af Amer) BUN/Creatinine Ratio Glucose Calcium Phosphorus 2.6 Magnesium Total Bilirubin AST ALT Alkaline Phosphatase Total Creatine Kinase Troponin I Total Protein Albumin Globulin Albumin/Globulin Ratio Lipase Ethyl Alcohol mg/dL Blood Type A Positive Antibody Screen NEGATIVE 08/05/19 17:45 WBC RBC Hgb Hct MCV MCH MCHC RDW Std Deviation RDW Coeff of Carina Plt Count MPV Immature Gran % (Auto) Neut % (Auto) Lymph % (Auto) [place] % (Auto) Eos % (Auto) Baso % (Auto) Immature Gran # (Auto) Neut # (Auto) Lymph # (Auto) [place] # (Auto) Eos # (Auto) Baso # (Auto) PT INR Sodium 143 Potassium Chloride Carbon Dioxide Anion Gap BUN Creatinine Est Cr Clr Drug Dosing Est GFR ( Amer) Est GFR (Non-Af Amer) BUN/Creatinine Ratio Glucose Calcium Phosphorus Magnesium Total Bilirubin AST ALT Alkaline Phosphatase Total Creatine Kinase Troponin I Total Protein Albumin Globulin Albumin/Globulin Ratio Lipase Ethyl Alcohol mg/dL Blood Type Antibody Screen (1) Closed trimalleolar fracture Encounter type: initial encounter Laterality: right Qualified Code(s): S82.851A - Displaced trimalleolar fracture of right lower leg, initial encounter for closed fracture
[2019-08-05] MEDS: NSS + 20MEQ KCL 20 MEQ/1,000 ML BAG IV SCH (19:54)
[2019-08-06] MEDS: GABAPENTIN 600 MG TAB PO SCH ×2 (05:42→14:13)
[2019-08-06] MEDS ORDERED: ONDANSETRON INJ 2 MG/ML 2 ML VIAL ONE (06:55)
[2019-08-06] MEDS ORDERED: fentaNYL citrate 100 MCG/2 ML VIAL ONE ×3 (06:55→13:06)
[2019-08-06] MEDS ORDERED: LIDOCAINE HCL 2% 2 ML VIAL/AMP(20MG/ML) INFIL ONE (06:55)
[2019-08-06] MEDS ORDERED: CISATRACURIUM BESYLATE IV SOLN 2 MG/ML 10 ML VIAL IV ONE (06:55)
[2019-08-06] MEDS ORDERED: PROPOFOL IV EMULSION 10 MG/ML 20 ML VIAL IV ONE (06:55)
[2019-08-06] MEDS ORDERED: MIDAZOLAM HCL 1 MG/ML 2ML VIAL ONE (06:55)
[2019-08-06] MEDS ORDERED: DEXAMETHASONE SOD INJ 4 MG/ML VIAL ONE (06:55)
[2019-08-06] MEDS ORDERED: ROPIVACAINE 0.5% 5 MG/ML 30 ML VIAL ONE (07:34)
[2019-08-06] MEDS ORDERED: EPINEPHrine INJ 1 MG/ML AMP ONE (07:35)
--- NOTE | 2019-08-06 07:50 | History & Physical Bridge Note ---
Date of Service August 06, 2019 History & Physical Bridge Note I have examined the patient, reviewed the History & Physical and in the interval since the performance of the History & Physical. I have noted the following changes of clinical significance: Patient is now oriented. He is aware of the year and month, which is improved since yesterday. He is aware of the surgical procedure, and agrees to proceed.
--- NOTE | 2019-08-06 08:03 | Anesthesiology Consultation ---
Date of Service August 06, 2019 Assessment & Plan Chart Review Chart Review: Acceptable Risk for Surgery and Patient NOT seen in Pre Admission Testing Consults Requested none ASA ASA4 Proposed Anesthesia Anesthesia Type: General Regional Regional Laterality: Right Site: Popliteal and Adductor Canal History Surgery Operation Date: 08/06/19 07:30 Proposed Procedures p Open Reduction Internal Fixation Right Ankle Fracture(Right) - Vasyl Werner M.D. Height/Weight Height: 5 ft 10 in Weight: 82.9 kg Allergies Allergy/AdvReac Type Severity Reaction Status Date / Time No Known Allergies Allergy Unverified 08/04/19 20:13 Medications Home Medications Medication Instructions Recorded Confirmed Last Taken atorvastatin [Lipitor] 20 mg PO DAILY 08/04/19 08/04/19 Unknown metoprolol tartrate 75 mg PO BID 08/04/19 08/04/19 Unknown multivitamin 1 tab PO DAILY 08/04/19 08/04/19 Unknown naltrexone 50 mg PO DAILY 08/04/19 08/04/19 Unknown vitamin B complex 1 tab PO DAILY 08/04/19 08/04/19 Unknown Active Medications Generic Name Dose Route Start Last Admin Trade Name Freq PRN Reason Stop Dose Admin Atorvastatin Calcium 20 mg 08/05/19 09:00 08/05/19 08:05 Lipitor PO 09/04/19 08:59 20 mg DAILY FUNMI Administration Folic Acid 1 mg 08/05/19 09:00 08/05/19 08:05 Folvite PO 09/04/19 08:59 1 mg QAM FUNMI Administration Gabapentin 600 mg 08/05/19 22:00 08/06/19 05:42 Neurontin PO 08/06/19 14:01 600 mg Q8H FUNMI Administration Potassium Chloride/Sodium Chloride 20 meq in 1,000 mls @ 60 mls/hr 08/05/19 19:00 08/06/19 07:16 Normal Saline W/20 Meq Kcl IV 09/04/19 18:59 0 mls/hr .[id number] FUNMI Infusion Ketorolac Tromethamine 10 mg 08/05/19 00:46 08/05/19 20:02 Toradol IV 08/10/19 00:45 10 mg Q6H PRN Administration Pain Metoprolol Tartrate 75 mg 08/05/19 00:46 08/05/19 19:55 Lopressor PO 09/04/19 00:45 75 mg BID FUNMI Administration Multivitamins 1 tab 08/05/19 09:00 08/05/19 08:04 Multivitamin Tab PO 09/04/19 08:59 1 tab DAILY FUNMI Administration Naltrexone HCl 50 mg 08/05/19 09:00 08/05/19 08:06 Naltrexone Hcl PO 09/04/19 08:59 50 mg DAILY FUNMI Administration Vitamin B Complex 1 tab 08/05/19 09:00 08/05/19 08:06 Vitamin B Complex PO 09/04/19 08:59 1 tab DAILY FUNMI Administration NPO Date Last Intake of Fluids: 08/05/19 Time Last Intake of Fluids: 23:00 Date Last Intake of Solids: 08/05/19 Time Last Intake of Solids: 18:00 Past Medical History Medical History Bilateral pulmonary embolism (Resolved 06/16/14) "completed 6 months Coumadin therapy" DVT (deep venous thrombosis) (Resolved) "completed 6 months Coumadin therapy" SSS (sick sinus syndrome) (Chronic) "s/p pacemaker 03/2015" Ankle fracture, right (Resolved) "s/p repair" Alcohol withdrawal delirium (Acute) COPD (chronic obstructive pulmonary disease) Exercise / Class Metabolic Activity III < 4 Walking/Shop/Light housework Past Surgical History Surgical History S/P left knee arthroscopy (Resolved) H/O vasectomy (Resolved) Past Anesthesia History No Hx of Anesthesia Complications and No Family Hx of Anesthesia Complications History of PONV No Hx of PONV and No Hx of Motion Sickness Social History Smoking Status: Former smoker Do You Dip or Chew Tobacco: No Hx Alcohol Use: Yes Alcohol type: wine and hard liquor alcohol intake frequency: 3 or more drinks per day Alcohol Intake Frequency Comment: 1/2liter/day Hx Substance Use: No Physical Exam Vital Signs Last Vital Signs Temp 36.5 C 08/06/19 06:56 Pulse 71 08/06/19 06:56 Resp 20 08/06/19 06:56 BP 153/92 H 08/06/19 06:56 Pulse Ox 96 08/06/19 06:56 Constitutional not obese ENMT Mouth: no dentition abnormality Thyromental Distance: > or= 3.5 Finger Breadths Mallampati Class: II Neck normal visual inspection, trachea midline and + facial hair; neck extension not limited Respiratory normal respiratory effort Auscultation: lungs clear to auscultation bilaterally Cardiovascular Rate/Rhythm: regular rate and regular rhythm Heart Sounds: no murmur Vessels: no carotid bruit Musculoskeletal Spine: normal cervical ROM Neurologic moves all extremities Motor/Sensory: no sensory deficit Psychiatric Orientation: alert; + not oriented x 3 (? dementia;doesn't know he's in hospital;doen't know month or day of week) Testing Laboratory Results 08/05/19 05:21 08/05/19 22:05 PT 10.7 Seconds (9.0-12.0) 08/04/19 19:50 INR 1.0 (0.9-1.1) 08/04/19 19:50 Blood Type A Positive 08/05/19 05:21 Antibody Screen NEGATIVE 08/05/19 05:21 Electrocardiogram Date: 08/04/19 Findings: + pertinent finding (a paced at 70) Chest X-Ray Date: 08/04/19 Findings: + NAD
[2019-08-06] MEDS: MULTIVITAMIN TAB PO SCH (08:24)
[2019-08-06] MEDS: FOLIC ACID 1 MG TAB PO SCH (08:25)
[2019-08-06] MEDS: VITAMIN B COMPLEX TAB PO SCH (08:25)
[2019-08-06] MEDS: NALTREXONE HCL 50 MG TAB PO SCH (08:25)
[2019-08-06] MEDS: ATORVASTATIN 20 MG TAB PO SCH (08:25)
[2019-08-06] MEDS: METOPROLOL TARTRATE 50 MG TAB PO SCH ×2 (08:25→16:19)
[2019-08-06 08:49] LABS: Basophils # (auto) 0.02 K/uL (0-0.2); Basophils % (auto) 0.4 %; Eosinophils # (auto) 0.16 K/uL (0-0.5); Eosinophils % (auto) 2.9 %; Hematocrit (blood only) 39.3 % (42-52); Hemoglobin 13.4 g/dL (14.0-18.0); Immature Granulocytes # (auto) 0.01 K/uL (0.00-0.02); Immature Granulocytes % (auto) 0.2 %; Lymphocytes # (auto) 0.98 K/uL (1.2-3.4); Lymphocytes % (auto) 17.9 %; Mean Corpuscular Hemoglobin 31.4 pg (25-34); Mean Corpuscular Hgb Conc 34.1 g/dL (32-36); Monocytes # (auto) 0.45 K/uL (0.11-0.59); Monocytes % (auto) 8.2 %; Neutrophils # (auto) 3.84 K/uL (1.4-6.5); Neutrophils % (auto) 70.4 %; Platelet Count 177 K/uL (130-400); RDW Coefficient of Variation 13.1 % (11.5-14.5); RDW Standard Deviation 43.8 fL (36.4-46.3); Red Blood Count 4.27 M/uL (4.7-6.1); White Blood Count 5.46 K/uL (4.8-10.8)
[2019-08-06 09:16] LABS: BUN Creatinine Ratio 16.6 (10-20); Calcium 8.4 mg/dl (8.5-10.1); Creatinine Clr Calc Pharmacy 74.8 ml/min; Est GFR (African American) 97.2; Est GFR (Non-African American) 83.9; Potassium 4.1 mmol/L (3.5-5.1)
[2019-08-06 09:26] LABS: Phosphorus 1.9 mg/dl (2.5-4.9)
[2019-08-06] MEDS ORDERED: METOPROLOL TARTRATE 1 MG/ML VIAL IV ONE (10:44)
[2019-08-06] MEDS ORDERED: CEFAZOLIN 2000MG 2,000 MG/15 ML SYR IV ONE (10:49)
[2019-08-06] MEDS ORDERED: GLYCOPYRROLATE 0.2 MG/ML VIAL ONE ×2 (11:57)
[2019-08-06] MEDS ORDERED: NEOSTIGMINE METHYLSULFATE 5 MG/5 ML SYR ONE (11:57)
--- NOTE | 2019-08-06 12:11 | Fluoroscopy Report ---
FL ankle RT min 3V RTN CLINICAL HISTORY: RIGHT ANKLE ORIF COMPARISON STUDY: Right ankle radiographs August 04, 2019. FLUOROSCOPY TIME: 1 minute and 19 seconds. FLUOROSCOPIC IMAGES: 5. FINDINGS: These images demonstrate plate and screw fixation of the distal right tibial and fibular fr actures. Hardware is intact. There are no unexpected radiopaque foreign bodies. Fracture alignment gomez s improved and appears near anatomic. IMPRESSION: Expected findings following internal fixation of the distal right tibial and fibular fra ctures. Electronically signed by: Denzel Leavitt M.D. 08/06/2019 12:10 PM
--- NOTE | 2019-08-06 12:24 | Post Operative Brief Note ---
Immediate Post Op Note v1 Date of Surgery August 06, 2019 Pre & Post Diagnosis Operation Date: 08/06/19 07:30 Pre-Op Diagnosis: Right trimalleolar-equivalent ankle fracture Post-Op Diagnosis: Same Procedure Operation Date: 08/06/19 07:30 Actual Procedures ORIF of right trimalleolar-equivalent ankle fracture, with fixation of posterior fragment ([id number]) - Vasyl Werner M.D. Surgeon Vasyl Werner It Infrastructure Specialist Krystyna Calderón PA-C Estimated Blood Loss 25 Findings Consistent with Post-Op Diagnosis Anesthesia Type General Complications none Disposition Disposition: Recovery Room
--- NOTE | 2019-08-06 12:38 | Operative Report ---
Post Operative Report Pre & Post Diagnosis Operation Date: 08/06/19 07:30 Pre-Op Diagnosis: Right trimalleolar-equivalent ankle fracture Post-Op Diagnosis: Same Procedure Operation Date: 08/06/19 07:30 Actual Procedures ORIF of right trimalleolar-equivalent ankle fracture, with fixation of posterior fragment (32490) - Vasyl Werner M.D. Surgeon Vasyl Werner French Binder Krystyna Calderón PA-C Estimated Blood Loss 25 Findings Consistent with Post-Op Diagnosis Specimens None. Drains None Anesthesia Type General Regional Complications none Disposition Disposition: Recovery Room Indications Mr. Gordon is a 79-year-old male with a chronic alcohol abuse. He was intoxicated when he apparently fell, but this was unwitnessed, and the patient has no recollection of the injury. His found him with his ankle in a grossly malaligned position, but it is unclear where the patient fell or when. His x-rays showed a trimalleolar equivalent right ankle fracture dislocation, with disruption of the medial deltoid ligament and a large posterior malleolar fragment that was allowing subluxation of the talus posteriorly. Surgical intervention was recommended. He was observed for a little over 24 hours for onset of alcohol withdrawal or delirium tremens. He remained relatively stable, and was cleared for the operating room this morning. Risks, benefits, and alternatives to surgery were explained in detail with the patient and his , and informed consent was obtained from his as the patient was confused and disoriented. Description of Procedure Mr. Gordon was identified and the preoperative holding area. Operative extremity was marked. He was then given a regional blockade by the anesthesia. He was then brought back to the operating room and general anesthesia was induced without complication. He was then placed prone on the operating room table. All bony prominences were well-padded. 2 g of Ancef were infused intrav enously for antibiotic prophylaxis. Tourniquet was placed on the right upper thigh. Right leg was then prepped and draped in standard sterile fashion using chlorhexidine prep. Right leg was then exsanguinated with an Esmarch, and then tourniquet was inflated. I decided to perform a posterior lateral approach to the ankle to allow for fixation of both the posterior malleolar fragment as well as the oblique fibula fracture. Longitudinal incision was made about midway between the Achilles tendon and the fibula. I carefully dissected through subtenons tissues and coagulated small crossing veins as necessary. I then opened the fascial sheath of the peroneal tendons and tagged this for later repair. I then subluxated the peroneal tendons laterally and elevated the lateral edge of the flexor pollicis longus muscle off of the posterior tibia to expose the posterior malleolar fragment. The fracture was identified and mobilized. Hematoma debris was debrided from the fracture site. I then manipulated the fracture fragment down into anatomic position, and held this with a large reduction forcep. I then temporarily pinned this with a K wire. I verified proper fracture fragment redu ction under fluoroscopic imaging. I then selected a T plate with 3 holes distally and 5 holes proximally from the Synthes 3.5 mm small fragment set. This was contoured appropriately to fit the posterior aspect of the tibia and an antiglide fashion. I first placed a 3.5 mm cortical screw up into the tibial shaft to reduce the plate down to bone. I then placed 3 nonlocking cancellus screws into the distal fracture fragment in lag fashion to reduce and compress the fracture site. I then placed additional nonlocking screws proximally into the tibial shaft. Multiple fluoroscopic images were obtained to verify proper hardware position, fracture reduction, and screw length. I then turned my attention to the oblique fibula fracture. The peroneal muscles and tendons were further subluxated and elevated off of the posterior aspect of the fibula as necessary for proper visualization and access to the fracture site. Hematoma debris was debrided from this fracture site as well. I then red uce the fracture and held it in anatomic alignment with a reduction clamp. I then selected an 8 hole 3.5 mm locking reconstruction plate. This was contoured appropriately to fit the distal fibula, rotating to the posterior aspect of the fibula distally. I first placed a lag screw through the plate across the fracture site to hold this anatomically reduced. I then placed nonlocking screws proximally into the fibular shaft, as well as locking screws through the distal fibula and a posterior to anterior direction. Multiple fluoroscopic images were again obtained to verify proper hardware position, fracture reduction, and screw length. Wound was then thoroughly irrigated with sterile saline. The fascia over top of the peroneal tendons was then carefully reapproximated with 3-0 Vicryl suture to prevent any peroneal subluxation over the distal fibula. Sub-cutaneous tissue was closed with 3-0 Vicryl suture, and skin was closed with 3-0 nylon. Sterile dressings were then applied with Xeroform sterile gauze and sterile web roll followed by a posterior plaster splint and Alfred wrap. Tourniquet was let down, the drapes were removed, the patient was awakened from general anesthesia, tr ansferred to the stretcher, and taken to the postanesthesia care unit in stable condition. There are no immediate complications from the procedure. As present scrubbed the entire procedure. I attest to the content of the Intraoperative Record and any orders documented therein. Any exceptions are noted below.
[2019-08-06] MEDS ORDERED: OXYCODONE HCL IR 5 MG TAB (IMMEDIATE RELEASE) PO PRN (12:52)
[2019-08-06] MEDS ORDERED: METOCLOPRAMIDE HCL INJ 5 MG/ML 2 ML VIAL IV PRN (12:52)
[2019-08-06] MEDS ORDERED: MAGNESIUM HYDROXIDE SUSP 30 ML UDC PO PRN (12:52)
[2019-08-06] MEDS ORDERED: NALOXONE HCL 0.4 MG/1 ML VIAL/CARP IV PRN ×2 (12:52→13:03)
[2019-08-06] MEDS ORDERED: BISACODYL 10 MG SUPP PR PRN (12:52)
[2019-08-06] MEDS ORDERED: ONDANSETRON INJ 2 MG/ML 2 ML VIAL IV PRN ×2 (12:52→13:03)
[2019-08-06] MEDS ORDERED: HYDROmorphone INJ 0.5 MG/0.5 ML SYR IV PRN (12:57)
[2019-08-06] MEDS ORDERED: SODIUM CHLORIDE 0.9% 1000ML 1,000 ML IV SCH (13:00)
[2019-08-06] MEDS ORDERED: LABETALOL HCL IV 5 MG/ML 20ML IV PRN (13:03)
[2019-08-06] MEDS ORDERED: ATROPINE SULFATE 0.1 MG/ML 10ML SYR IV PRN (13:03)
[2019-08-06] MEDS ORDERED: PROMETHAZINE HCL 12.5 MG in SODIUM CHLORIDE 0.9% 50 ML IV PRN (13:03)
[2019-08-06] MEDS ORDERED: ePHEDrine sulfate 50 MG/ML AMP IV PRN (13:03)
[2019-08-06] MEDS: fentaNYL citrate 100 MCG/2 ML VIAL IV PRN ×4 (13:07→13:22)
--- NOTE | 2019-08-06 13:31 | Anesthesiology Progress Note ---
Date of Service August 06, 2019 Anesthesia Post Procedure Vital Signs Vital Signs: Temp Pulse Pulse Pulse Pulse Resp BP 08/06/19 13:20 70 16 08/06/19 13:10 71 16 08/06/19 13:00 72 16 08/06/19 12:50 70 16 08/06/19 12:42 36.0 C L 70 20 08/06/19 10:37 70 08/06/19 06:56 36.5 C 71 20 153/92 H 08/06/19 04:14 36.7 C 70 16 151/96 H 08/06/19 00:46 70 08/05/19 23:51 36.5 C 72 20 123/77 08/05/19 19:00 36.7 C 71 20 149/85 H 08/05/19 16:25 36.6 C 72 18 162/98 H 08/05/19 15:00 70 BP Pulse Ox 08/06/19 13:20 146/89 H 98 08/06/19 13:10 143/87 H 98 08/06/19 13:00 147/92 H 100 08/06/19 12:50 138/88 100 08/06/19 12:42 123/87 99 08/06/19 10:37 08/06/19 06:56 96 08/06/19 04:14 94 08/06/19 00:46 08/05/19 23:51 96 08/05/19 19:00 96 08/05/19 16:25 96 08/05/19 15:00 Pain Intensity Right Ankle: Pain Intensity: 4 Transfer of Care Handoff Completed per policy Notes Mental Status: alert / awake / arousable Patient Amnestic to Procedure: Yes Nausea / Vomiting: adequately controlled Pain: adequately controlled Airway Patency, RR, SpO2: stable & adequate BP & HR: stable & adequate Hydration State: stable & adequate Anesthetic Complications: no major complications apparent
[2019-08-06] MEDS: ACETAMINOPHEN 500 MG TAB PO SCH ×2 (14:12→21:14)
[2019-08-06] MEDS: NSS + 20MEQ KCL 20 MEQ/1,000 ML BAG IV SCH (14:12)
--- NOTE | 2019-08-06 16:48 | Hospitalist Progress Note ---
Date of Service August 06, 2019 Assessment & Plan (1) Closed trimalleolar fracture: Likely secondary to mechanical fall secondary to alcoholism Status post ORIF 08/06/2019 -Blood pressure elevated, asymptomatic, management noted below PT/OT Alcoholism Last drink was a day of admission, alcohol level 200s -No overt signs and symptoms of withdrawal at this time Closely monitor -Continue alcohol withdrawal protocol including gabapentin protocol, PRN Ativan dementia/cognitive impairment 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 as per recent outpatient Neuro eval -Oriented x3, answers most questions appropriately SSS sp PPM, paced rhythm - appropriate device function/longevity on recent outpatient [facility] cardio visit 05/2019 HTN -Continue metoprolol -Add amlodipine if still uncontrolled history PE/DVT status post Coumadin -Heparin or Lovenox when okay with orthopedic surgery Disposition We will order PT and occupational therapy evaluation May need inpatient rehab stay Subjective Follow-up for right trimalleolar fracture, status post mechanical fall Status post post ORIF, right ankle fracture Seen resting in bed, drowsy but awake and oriented x3 at the bedside visiting Reports mild to moderate pain from the surgical site Denies chest pain, shortness of breath, palpitations no anxiety, tremors, hallucinations No other symptoms Review of Systems Review of Systems: All systems reviewed & are unremarkable except as noted in HPI & below Physical Exam Physical Exam: General- oriented x 3, not in distress, speaks in sentences with no effort or accessory muscle use Eyes- anicteric Neck- no JVD Lungs- clear breath sounds bilaterally, no crackles, no wheezing Heart- normal rate, regular rhythm; no murmurs Abdomen- normal bowel sounds, nondistended, soft, nontender Extremities- Right lower extremity: Cast in place Left lower extremity: Essentially normal no pretibial edema, no calf tenderness Neuro- alert, oriented x 3; no gross focal neurologic deficits Skin- warm & dry Results & Data Vital Signs (Past 12 Hours) Vital Signs Temp Pulse Pulse Pulse Resp BP BP 08/06/19 15:55 36.6 C 72 18 171/104 H 08/06/19 15:15 70 20 08/06/19 15:00 71 08/06/19 14:45 36.3 C L 70 18 08/06/19 14:15 36.5 C 72 18 08/06/19 14:02 36.5 C 80 18 08/06/19 13:40 70 20 08/06/19 13:30 36.2 C L 71 20 08/06/19 13:20 70 16 08/06/19 13:10 71 16 08/06/19 13:00 72 16 08/06/19 12:50 70 16 08/06/19 12:42 36.0 C L 70 20 08/06/19 10:37 70 08/06/19 06:56 36.5 C 71 20 153/92 H BP Pulse Ox 08/06/19 15:55 157/104 H 97 08/06/19 15:15 167/103 H 99 08/06/19 15:00 08/06/19 14:45 156/97 H 97 08/06/19 14:15 140/86 95 08/06/19 14:02 154/93 H 96 08/06/19 13:40 143/88 H 99 08/06/19 13:30 136/91 99 08/06/19 13:20 146/89 H 98 08/06/19 13:10 143/87 H 98 08/06/19 13:00 147/92 H 100 08/06/19 12:50 138/88 100 08/06/19 12:42 123/87 99 08/06/19 10:37 08/06/19 06:56 96 Laboratory Results Laboratory Results - last 24 hr 08/05/19 08/05/19 08/06/19 17:45 22:05 08:32 WBC 5.46 RBC 4.27 L Hgb 13.4 L Hct 39.3 L MCV 92.0 MCH 31.4 MCHC 34.1 RDW Std Deviation 43.8 RDW Coeff of Carina 13.1 Plt Count 177 MPV 10.0 Immature Gran % (Auto) 0.2 Neut % (Auto) 70.4 Lymph % (Auto) 17.9 [place] % (Auto) 8.2 Eos % (Auto) 2.9 Baso % (Auto) 0.4 Immature Gran # (Auto) 0.01 Neut # (Auto) 3.84 Lymph # (Auto) 0.98 L [place] # (Auto) 0.45 Eos # (Auto) 0.16 Baso # (Auto) 0.02 Sodium 143 143 Potassium Chloride Carbon Dioxide Anion Gap BUN Creatinine Est Cr Clr Drug Dosing Est GFR ( Amer) Est GFR (Non-Af Amer) BUN/Creatinine Ratio Glucose Calcium Phosphorus Magnesium 08/06/19 08:32 WBC RBC Hgb Hct MCV MCH MCHC RDW Std Deviation RDW Coeff of Carina Plt Count MPV Immature Gran % (Auto) Neut % (Auto) Lymph % (Auto) [place] % (Auto) Eos % (Auto) Baso % (Auto) Immature Gran # (Auto) Neut # (Auto) Lymph # (Auto) [place] # (Auto) Eos # (Auto) Baso # (Auto) Sodium 144 Potassium 4.1 Chloride 111 H Carbon Dioxide 29 Anion Gap 3.0 BUN 14 Creatinine 0.84 Est Cr Clr Drug Dosing 74.8 Est GFR ( Amer) 97.2 Est GFR (Non-Af Amer) 83.9 BUN/Creatinine Ratio 16.6 Glucose 100 H Calcium 8.4 L Phosphorus 1.9 L Magnesium 2.0 (1) Closed trimalleolar fracture Encounter type: initial encounter Laterality: right Qualified Code(s): S82.851A - Displaced trimalleolar fracture of right lower leg, initial encounter for closed fracture
[2019-08-06] MEDS: FERROUS GLUCONATE 324 MG TAB PO SCH (17:35)
[2019-08-06] MEDS: POT PHOSPHATE MONOBASIC W/ SOD TAB PO SCH ×2 (17:35→21:14)
[2019-08-06] MEDS ORDERED: CEFAZOLIN IV SCH (18:00)
[2019-08-06] MEDS ORDERED: AMLODIPINE BESYLATE 5 MG TAB PO ONE (18:44)
[2019-08-06] MEDS: CEFAZOLIN 2000MG 2,000 MG/15 ML SYR IV SCH (19:28)
[2019-08-06] MEDS: ASPIRIN 325 MG ECTAB PO SCH (21:13)
[2019-08-06] MEDS: DOCUSATE SODIUM 100 MG CAP PO SCH (21:14)
[2019-08-06] MEDS: SENNA 8.6 MG TAB PO SCH (21:15)
[2019-08-07] MEDS: GABAPENTIN 600 MG TAB PO SCH ×2 (00:39→11:54)
[2019-08-07] MEDS: CEFAZOLIN 2000MG 2,000 MG/15 ML SYR IV SCH (02:24)
[2019-08-07] MEDS: ACETAMINOPHEN 500 MG TAB PO SCH ×3 (06:04→21:40)
[2019-08-07 06:23] LABS: Basophils # (auto) 0.01 K/uL (0-0.2); Basophils % (auto) 0.1 %; Hematocrit (blood only) 39.2 % (42-52); Hemoglobin 13.2 g/dL (14.0-18.0); Immature Granulocytes # (auto) 0.01 K/uL (0.00-0.02); Immature Granulocytes % (auto) 0.1 %; Lymphocytes # (auto) 0.68 K/uL (1.2-3.4); Lymphocytes % (auto) 7.2 %; Mean Corpuscular Hemoglobin 31.3 pg (25-34); Mean Corpuscular Hgb Conc 33.7 g/dL (32-36); Mean Corpuscular Volume 92.9 fL (80-100); Mean Platelet Volume 10.3 fL (7.4-10.4); Monocytes # (auto) 0.77 K/uL (0.11-0.59); Monocytes % (auto) 8.2 %; Neutrophils # (auto) 7.96 K/uL (1.4-6.5); Neutrophils % (auto) 84.4 %; Platelet Count 209 K/uL (130-400); RDW Standard Deviation 44.4 fL (36.4-46.3); Red Blood Count 4.22 M/uL (4.7-6.1); White Blood Count 9.43 K/uL (4.8-10.8)
[2019-08-07 07:00] LABS: BUN Creatinine Ratio 15.2 (10-20); Calcium 8.6 mg/dl (8.5-10.1); Creatinine Clr Calc Pharmacy 62.9 ml/min; Est GFR (African American) 83.2; Est GFR (Non-African American) 71.8
[2019-08-07] MEDS: POT PHOSPHATE MONOBASIC W/ SOD TAB PO SCH ×2 (07:30→11:54)
[2019-08-07] MEDS: NALTREXONE HCL 50 MG TAB PO SCH (07:31)
[2019-08-07] MEDS: DOCUSATE SODIUM 100 MG CAP PO SCH ×2 (07:32→21:40)
[2019-08-07] MEDS: ASPIRIN 325 MG ECTAB PO SCH ×2 (07:32→21:40)
[2019-08-07] MEDS: ATORVASTATIN 20 MG TAB PO SCH (07:32)
[2019-08-07] MEDS: FOLIC ACID 1 MG TAB PO SCH (07:32)
[2019-08-07] MEDS: VITAMIN B COMPLEX TAB PO SCH (07:32)
[2019-08-07] MEDS: METOPROLOL TARTRATE 50 MG TAB PO SCH ×2 (07:33→21:40)
[2019-08-07] MEDS: FERROUS GLUCONATE 324 MG TAB PO SCH ×2 (07:33→16:53)
[2019-08-07] MEDS: MULTIVITAMIN TAB PO SCH ×2 (07:34→07:42)
--- NOTE | 2019-08-07 10:03 | Anesthesiology Progress Note ---
Date of Service August 07, 2019 Anesthesia Post Procedure Vital Signs Vital Signs: Temp Pulse Pulse Pulse Resp BP BP 08/07/19 07:54 36.8 C 70 70 17 132/86 08/07/19 04:00 36.9 C 68 20 142/77 H 08/06/19 23:00 36.7 C 79 18 141/86 H 08/06/19 22:20 82 08/06/19 20:00 36.7 C 79 20 08/06/19 17:24 37.0 C 80 20 08/06/19 15:55 36.6 C 72 18 171/104 H 08/06/19 15:15 70 20 08/06/19 15:00 71 08/06/19 14:45 36.3 C L 70 18 08/06/19 14:15 36.5 C 72 18 08/06/19 14:02 36.5 C 80 18 08/06/19 13:40 70 20 08/06/19 13:30 36.2 C L 71 20 08/06/19 13:20 70 16 08/06/19 13:10 71 16 08/06/19 13:00 72 16 08/06/19 12:50 70 16 08/06/19 12:42 36.0 C L 70 20 08/06/19 10:37 70 BP Pulse Ox 08/07/19 07:54 98 08/07/19 04:00 92 08/06/19 23:00 95 08/06/19 22:20 08/06/19 20:00 160/88 H 94 08/06/19 17:24 174/107 H 97 08/06/19 15:55 157/104 H 97 08/06/19 15:15 167/103 H 99 08/06/19 15:00 08/06/19 14:45 156/97 H 97 08/06/19 14:15 140/86 95 08/06/19 14:02 154/93 H 96 08/06/19 13:40 143/88 H 99 08/06/19 13:30 136/91 99 08/06/19 13:20 146/89 H 98 08/06/19 13:10 143/87 H 98 08/06/19 13:00 147/92 H 100 08/06/19 12:50 138/88 100 08/06/19 12:42 123/87 99 08/06/19 10:37 Pain Intensity Right Ankle: Pain Intensity: 0 Notes Mental Status: alert / awake / arousable and participated in evaluation Patient Amnestic to Procedure: Yes Nausea / Vomiting: adequately controlled Pain: adequately controlled Airway Patency, RR, SpO2: stable & adequate BP & HR: stable & adequate Hydration State: stable & adequate Anesthetic Complications: no major complications apparent
--- NOTE | 2019-08-07 11:38 | Orthopedic Progress Note ---
Date of Service August 07, 2019 Assessment & Plan (1) Closed trimalleolar fracture: POD 1 s/p ORIF Right Ankle Fx PT/OT ; NWB RLE On ASA bid Pain control with Oxycodone, IV Hydromorphone. Currently Stable per Ortho Plan for dc when ok with Med service. Subjective POD 1 s/p ORIF Right Ankle Fx. Pt sitting up at at the edge of the bed. States he was just looking for his wallet. State he was just walking around his room earlier (? with walker or not) looking for it. No complaints at present time. Pain controlled. Physical Exam Physical Exam: Splint/dressing C/D/I. Toes mobile. Cap refill < 2 seconds. Good sensation. Results & Data Vital Signs (Past 12 Hours) Vital Signs Temp Pulse Pulse Pulse Resp BP BP 08/07/19 11:24 69 08/07/19 10:57 36.4 C L 75 17 113/77 08/07/19 07:54 36.8 C 70 70 17 132/86 08/07/19 04:00 36.9 C 68 20 142/77 H Pulse Ox 08/07/19 11:24 08/07/19 10:57 96 08/07/19 07:54 98 08/07/19 04:00 92 (1) Closed trimalleolar fracture Encounter type: initial encounter Laterality: right Qualified Code(s): S82.851A - Displaced trimalleolar fracture of right lower leg, initial encounter for closed fracture
--- NOTE | 2019-08-07 12:43 | Hospitalist Progress Note ---
Date of Service August 07, 2019 Assessment & Plan (1) Closed trimalleolar fracture: Likely secondary to mechanical fall secondary to alcoholism Status post ORIF 08/06/2019 -Postop day #1 Stable overall Will discuss with orthopedic service if Lovenox can be started as patient has a history of DVT Alcoholism Last drink was a day of admission, alcohol level 200s -No overt signs and symptoms of withdrawal at this time Closely monitor -Continue alcohol withdrawal protocol including gabapentin protocol, PRN Ativan dementia/cognitive impairment 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 as per recent outpatient Neuro eval -Was disoriented last evening, improved today Continue to monitor closely SSS sp PPM, paced rhythm - appropriate device function/longevity on recent outpatient [facility] cardio visit 05/2019 HTN -Continue metoprolol -Add amlodipine if uncontrolled history PE/DVT status post Coumadin -Heparin or Lovenox when okay with orthopedic surgery Disposition PT/OT evaluation in progress Will likely need inpatient rehab stay Subjective Follow-up for trimalleolar ankle fracture, status post surgery Seen resting in bed, awake, alert oriented x2 Answers most questions appropriately Minimal pain on the surgical site Denies anxiety, tremors, hallucinations, sweats No chest pain shortness of breath palpitations dizziness Denies other symptoms Physical Exam Physical Exam: General- oriented x 3, not in distress, speaks in sentences with no effort or accessory muscle use Eyes- anicteric Neck- no JVD Lungs- clear breath sounds, no crackles bilaterally Heart- normal rate, regular rhythm; no murmurs Abdomen- normal bowel sounds, nondistended, soft, nontender Extremities-dressing in place over the right lower leg, no edema noted Left lower extremity: No pretibial edema, no calf tenderness Neuro- alert, oriented x 3; no gross focal neurologic deficits Skin- warm & dry Results & Data Vital Signs (Past 12 Hours) Vital Signs Temp Pulse Pulse Pulse Resp BP BP 08/07/19 11:24 69 08/07/19 10:57 36.4 C L 75 17 113/77 08/07/19 07:54 36.8 C 70 70 17 132/86 08/07/19 04:00 36.9 C 68 20 142/77 H Pulse Ox 08/07/19 11:24 08/07/19 10:57 96 08/07/19 07:54 98 08/07/19 04:00 92 Laboratory Results Laboratory Results - last 24 hr 08/07/19 08/07/19 05:32 05:32 WBC 9.43 RBC 4.22 L Hgb 13.2 L Hct 39.2 L MCV 92.9 MCH 31.3 MCHC 33.7 RDW Std Deviation 44.4 RDW Coeff of Carina 13.0 Plt Count 209 MPV 10.3 Immature Gran % (Auto) 0.1 Neut % (Auto) 84.4 Lymph % (Auto) 7.2 [place] % (Auto) 8.2 Eos % (Auto) 0.0 Baso % (Auto) 0.1 Immature Gran # (Auto) 0.01 Neut # (Auto) 7.96 H Lymph # (Auto) 0.68 L [place] # (Auto) 0.77 H Eos # (Auto) 0.00 Baso # (Auto) 0.01 Sodium 145 Potassium 4.0 Chloride 108 H Carbon Dioxide 31 Anion Gap 6.0 BUN 15 Creatinine 1.00 Est Cr Clr Drug Dosing 62.9 Est GFR ( Amer) 83.2 Est GFR (Non-Af Amer) 71.8 BUN/Creatinine Ratio 15.2 Glucose 120 H Calcium 8.6 (1) Closed trimalleolar fracture Encounter type: initial encounter Laterality: right Qualified Code(s): S82.851A - Displaced trimalleolar fracture of right lower leg, initial encounter for closed fracture
[2019-08-07] MEDS ORDERED: ENOXAPARIN INJ 40 MG/0.4 ML SYR SQ ONE (12:49)
[2019-08-07] MEDS: SENNA 8.6 MG TAB PO SCH (21:40)
[2019-08-08] MEDS: ACETAMINOPHEN 500 MG TAB PO SCH ×3 (05:42→22:16)
[2019-08-08 06:14] LABS: Basophils # (auto) 0.02 K/uL (0-0.2); Basophils % (auto) 0.2 %; Eosinophils # (auto) 0.09 K/uL (0-0.5); Hematocrit (blood only) 36.8 % (42-52); Hemoglobin 12.7 g/dL (14.0-18.0); Immature Granulocytes # (auto) 0.02 K/uL (0.00-0.02); Immature Granulocytes % (auto) 0.2 %; Lymphocytes # (auto) 1.13 K/uL (1.2-3.4); Lymphocytes % (auto) 12.2 %; Mean Corpuscular Hemoglobin 32.1 pg (25-34); Mean Corpuscular Hgb Conc 34.5 g/dL (32-36); Mean Corpuscular Volume 92.9 fL (80-100); Mean Platelet Volume 9.5 fL (7.4-10.4); Monocytes # (auto) 0.65 K/uL (0.11-0.59); Neutrophils # (auto) 7.39 K/uL (1.4-6.5); Neutrophils % (auto) 79.4 %; Platelet Count 167 K/uL (130-400); RDW Coefficient of Variation 13.1 % (11.5-14.5); RDW Standard Deviation 44.2 fL (36.4-46.3); Red Blood Count 3.96 M/uL (4.7-6.1)
[2019-08-08 06:43] LABS: BUN Creatinine Ratio 18.3 (10-20); Calcium 8.7 mg/dl (8.5-10.1); Creatinine Clr Calc Pharmacy 60.4 ml/min; Est GFR (African American) 79.3; Est GFR (Non-African American) 68.4; Potassium 3.7 mmol/L (3.5-5.1)
[2019-08-08] MEDS: DOCUSATE SODIUM 100 MG CAP PO SCH ×2 (07:40→20:48)
[2019-08-08] MEDS: ATORVASTATIN 20 MG TAB PO SCH (07:40)
[2019-08-08] MEDS: ASPIRIN 325 MG ECTAB PO SCH ×2 (07:40→20:47)
[2019-08-08] MEDS: FERROUS GLUCONATE 324 MG TAB PO SCH ×2 (07:40→16:30)
[2019-08-08] MEDS: METOPROLOL TARTRATE 50 MG TAB PO SCH ×2 (07:41→20:48)
[2019-08-08] MEDS: ENOXAPARIN INJ 40 MG/0.4 ML SYR SQ SCH (07:42)
[2019-08-08] MEDS: MULTIVITAMIN TAB PO SCH ×2 (07:43→10:32)
[2019-08-08] MEDS: NALTREXONE HCL 50 MG TAB PO SCH (07:43)
[2019-08-08] MEDS: VITAMIN B COMPLEX TAB PO SCH (07:43)
--- NOTE | 2019-08-08 09:55 | Orthopedic Progress Note ---
Date of Service August 08, 2019 Assessment & Plan (1) Closed trimalleolar fracture: POD 2 s/p ORIF Right Ankle Fx PT/OT ; NWB RLE On ASA bid Pain control with Oxycodone, IV Hydromorphone. Currently Stable per Ortho. ortho will sign off at this time, please feel free to contact with any questions or concerns, he will contact [facility] at [phone] to schedule f/u with Dr Werner 10-12 days post op. Plan for dc when ok with Med service. Subjective POD 2 s/p ORIF Right Ankle Fx. Pt sitting in bedside chair; No complaints at present time. Pain controlled. denies CP/SOB, denies fever/chills Physical Exam Physical Exam: Vital Signs Temp Pulse Pulse Resp BP BP Pulse Ox 08/08/19 06:52 37.1 C 76 20 176/93 H 93 08/08/19 05:40 72 157/92 H 08/08/19 04:03 37.3 C 74 18 177/99 H 95 08/07/19 23:06 36.8 C 71 18 158/94 H 94 08/07/19 19:11 36.9 C 71 18 149/90 H 95 08/07/19 15:40 71 08/07/19 15:27 37.1 C 71 15 119/79 95 08/07/19 11:24 69 08/07/19 10:57 36.4 C L 75 17 113/77 96 Intake and Output 08/07/19 08/08/19 08/08/19 22:59 06:59 14:59 Intake Total 300 / 780 240 / 780 Output Total 25 / 1075 1050 / 1075 Balance 275 / -295 -810 / -295 Intake: Oral 300 / 780 240 / 780 Output: Urine 25 / 425 400 / 425 Urine Amount ([place]) 650 / 650 Straight 650 / 650 Constitutional: WD/WN, vitals as above no acute distress Musculoskeletal: right lower leg: able to wiggle toes, sensation intact to light touch, cap refill < 2 seconds; splint fitting well. Results & Data Vital Signs (Past 12 Hours) Vital Signs Temp Pulse Resp BP BP Pulse Ox 08/08/19 06:52 37.1 C 76 20 176/93 H 93 08/08/19 05:40 72 157/92 H 08/08/19 04:03 37.3 C 74 18 177/99 H 95 08/07/19 23:06 36.8 C 71 18 158/94 H 94 Laboratory Results Laboratory Results WBC 9.30 K/uL (4.8-10.8) 08/08/19 06:03 RBC 3.96 M/uL (4.7-6.1) L 08/08/19 06:03 Hgb 12.7 g/dL (14.0-18.0) L 08/08/19 06:03 Hct 36.8 % (42-52) L 08/08/19 06:03 MCV 92.9 fL (80-100) 08/08/19 06:03 MCH 32.1 pg (25-34) 08/08/19 06:03 MCHC 34.5 g/dL (32-36) 08/08/19 06:03 RDW Std Deviation 44.2 fL (36.4-46.3) 08/08/19 06:03 RDW Coeff of Carina 13.1 % (11.5-14.5) 08/08/19 06:03 Plt Count 167 K/uL (130-400) 08/08/19 06:03 MPV 9.5 fL (7.4-10.4) 08/08/19 06:03 Immature Gran % (Auto) 0.2 % 08/08/19 06:03 Neut % (Auto) 79.4 % 08/08/19 06:03 Lymph % (Auto) 12.2 % 08/08/19 06:03 [place] % (Auto) 7.0 % 08/08/19 06:03 Eos % (Auto) 1.0 % 08/08/19 06:03 Baso % (Auto) 0.2 % 08/08/19 06:03 Immature Gran # (Auto) 0.02 K/uL (0.00-0.02) 08/08/19 06:03 Neut # (Auto) 7.39 K/uL (1.4-6.5) H 08/08/19 06:03 Lymph # (Auto) 1.13 K/uL (1.2-3.4) L 08/08/19 06:03 [place] # (Auto) 0.65 K/uL (0.11-0.59) H 08/08/19 06:03 Eos # (Auto) 0.09 K/uL (0-0.5) 08/08/19 06:03 Baso # (Auto) 0.02 K/uL (0-0.2) 08/08/19 06:03 PT 10.7 Seconds (9.0-12.0) 08/04/19 19:50 INR 1.0 (0.9-1.1) 08/04/19 19:50 Sodium 146 mmol/L (136-145) H 08/08/19 06:03 Potassium 3.7 mmol/L (3.5-5.1) 08/08/19 06:03 Chloride 109 mmol/L (98-107) H 08/08/19 06:03 Carbon Dioxide 31 mmol/L (21-32) 08/08/19 06:03 Anion Gap 6.0 (3-11) 08/08/19 06:03 BUN 19 mg/dl (7-18) H 08/08/19 06:03 Creatinine 1.04 mg/dl (0.6-1.4) 08/08/19 06:03 Est Cr Clr Drug Dosing 60.4 ml/min 08/08/19 06:03 Est GFR ( Amer) 79.3 08/08/19 06:03 Est GFR (Non-Af Amer) 68.4 08/08/19 06:03 BUN/Creatinine Ratio 18.3 (10-20) 08/08/19 06:03 Glucose 106 mg/dl (70-99) H 08/08/19 06:03 Calcium 8.7 mg/dl (8.5-10.1) 08/08/19 06:03 Phosphorus 4.1 mg/dl (2.5-4.9) D 08/07/19 05:32 Magnesium 2.0 mg/dl (1.8-2.4) 08/06/19 08:32 Total Bilirubin 0.5 mg/dl (0.2-1) 08/04/19 19:50 AST 21 U/L (15-37) 08/04/19 19:50 ALT 32 U/L (12-78) 08/04/19 19:50 Alkaline Phosphatase 68 U/L (45-117) 08/04/19 19:50 Total Creatine Kinase 106 U/L (39-308) 08/04/19 19:50 Troponin I < 0.015 ng/ml (0-0.045) 08/04/19 19:50 Total Protein 6.7 gm/dl (6.4-8.2) 08/04/19 19:50 Albumin 3.6 gm/dl (3.4-5.0) 08/04/19 19:50 Globulin 3.1 gm/dl (2.5-4.0) 08/04/19 19:50 Albumin/Globulin Ratio 1.2 (0.9-2) 08/04/19 19:50 Lipase 260 U/L (73-393) 08/04/19 19:50 Ethyl Alcohol mg/dL 227.0 mg/dl (0-3) H 08/04/19 20:19 Blood Type A Positive 08/05/19 05:21 Antibody Screen NEGATIVE 08/05/19 05:21 (1) Closed trimalleolar fracture Encounter type: initial encounter Laterality: right Qualified Code(s): S82.851A - Displaced trimalleolar fracture of right lower leg, initial encounter for closed fracture
[2019-08-08] MEDS: FOLIC ACID 1 MG TAB PO SCH (10:34)
[2019-08-08] MEDS ORDERED: GABAPENTIN 600 MG TAB PO SCH (12:00)
--- NOTE | 2019-08-08 19:01 | Hospitalist Progress Note ---
Date of Service August 08, 2019 Assessment & Plan (1) Closed trimalleolar fracture: Likely secondary to mechanical fall secondary to alcoholism Status post ORIF 08/06/2019 -Postop day #2 Stable overall Lovenox SC daily in light of history of DVT- will need at least 4-6 weeks Alcoholism Last drink was a day of admission, alcohol level 200s -No overt signs and symptoms of withdrawal at this time Closely monitor -Continue alcohol withdrawal protocol including gabapentin protocol Day 02/23, PRN Ativan Dementia/cognitive impairment 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 as per recent outpatient Neuro eval -mental status improved today Continue to monitor closely SSS sp PPM, paced rhythm - appropriate device function/longevity on recent outpatient [facility] cardio visit 05/2019 HTN -Continue metoprolol -Add amlodipine if uncontrolled history PE/DVT status post Coumadin -Lovenox subcutaneous daily Disposition PT/OT evaluation in progress Will need inpatient rehab stay Subjective ff up for s/p ankle surgery, alcoholism seen resting in bed, comfortable at bedside oriented x 2, answers most questions appropriately denies tremors, anxiety, hallucinations denies chest pain, headache, palpitations, dizziness minimal ankle pain no other symptoms Review of Systems Review of Systems: All systems reviewed & are unremarkable except as noted in HPI & below Physical Exam Physical Exam: General- oriented x 2, not in distress, speaks in sentences with no effort or accessory muscle use Eyes- anicteric Neck- no JVD Lungs- clear breath sounds bilaterally, no crackles/wheezing Heart- normal rate, regular rhythm; no murmurs Abdomen- normal bowel sounds, nondistended, soft, nontender Extremities- right lower ext: heavy bandage in place no pretibial edema, no calf tenderness Neuro- alert, oriented x 2; no gross focal neurologic deficits Skin- warm & dry Results & Data Vital Signs (Past 12 Hours) Vital Signs Temp Pulse Pulse Resp BP Pulse Ox 08/08/19 16:00 80 08/08/19 15:18 36.9 C 75 18 149/91 H 96 08/08/19 11:18 36.7 C 70 18 158/94 H 93 Laboratory Results Laboratory Results - last 24 hr 08/08/19 08/08/19 06:03 06:03 WBC 9.30 RBC 3.96 L Hgb 12.7 L Hct 36.8 L MCV 92.9 MCH 32.1 MCHC 34.5 RDW Std Deviation 44.2 RDW Coeff of Carina 13.1 Plt Count 167 MPV 9.5 Immature Gran % (Auto) 0.2 Neut % (Auto) 79.4 Lymph % (Auto) 12.2 [place] % (Auto) 7.0 Eos % (Auto) 1.0 Baso % (Auto) 0.2 Immature Gran # (Auto) 0.02 Neut # (Auto) 7.39 H Lymph # (Auto) 1.13 L [place] # (Auto) 0.65 H Eos # (Auto) 0.09 Baso # (Auto) 0.02 Sodium 146 H Potassium 3.7 Chloride 109 H Carbon Dioxide 31 Anion Gap 6.0 BUN 19 H Creatinine 1.04 Est Cr Clr Drug Dosing 60.4 Est GFR ( Amer) 79.3 Est GFR (Non-Af Amer) 68.4 BUN/Creatinine Ratio 18.3 Glucose 106 H Calcium 8.7 (1) Closed trimalleolar fracture Encounter type: initial encounter Laterality: right Qualified Code(s): S82.851A - Displaced trimalleolar fracture of right lower leg, initial encounter for closed fracture
[2019-08-08] MEDS: SENNA 8.6 MG TAB PO SCH (20:47)
[2019-08-09] MEDS: ACETAMINOPHEN 500 MG TAB PO SCH ×2 (06:12→13:46)
[2019-08-09 07:22] LABS: Basophils # (auto) 0.03 K/uL (0-0.2); Basophils % (auto) 0.4 %; Eosinophils # (auto) 0.17 K/uL (0-0.5); Eosinophils % (auto) 2.3 %; Hematocrit (blood only) 35.2 % (42-52); Hemoglobin 11.9 g/dL (14.0-18.0); Immature Granulocytes # (auto) 0.01 K/uL (0.00-0.02); Immature Granulocytes % (auto) 0.1 %; Lymphocytes # (auto) 1.09 K/uL (1.2-3.4); Mean Corpuscular Hemoglobin 31.6 pg (25-34); Mean Corpuscular Hgb Conc 33.8 g/dL (32-36); Mean Corpuscular Volume 93.4 fL (80-100); Mean Platelet Volume 10.1 fL (7.4-10.4); Monocytes # (auto) 0.62 K/uL (0.11-0.59); Monocytes % (auto) 8.5 %; Neutrophils # (auto) 5.37 K/uL (1.4-6.5); Neutrophils % (auto) 73.7 %; Platelet Count 187 K/uL (130-400); RDW Coefficient of Variation 13.2 % (11.5-14.5); RDW Standard Deviation 44.7 fL (36.4-46.3); Red Blood Count 3.77 M/uL (4.7-6.1); White Blood Count 7.29 K/uL (4.8-10.8)
[2019-08-09 07:55] LABS: BUN Creatinine Ratio 18.7 (10-20); Calcium 8.5 mg/dl (8.5-10.1); Est GFR (African American) 96.7; Est GFR (Non-African American) 83.5; Potassium 3.9 mmol/L (3.5-5.1)
[2019-08-09] MEDS: FERROUS GLUCONATE 324 MG TAB PO SCH (08:52)
[2019-08-09] MEDS: METOPROLOL TARTRATE 50 MG TAB PO SCH (08:53)
[2019-08-09] MEDS: DOCUSATE SODIUM 100 MG CAP PO SCH (08:53)
[2019-08-09] MEDS: FOLIC ACID 1 MG TAB PO SCH (08:53)
[2019-08-09] MEDS: ASPIRIN 325 MG ECTAB PO SCH (08:53)
[2019-08-09] MEDS: ATORVASTATIN 20 MG TAB PO SCH (08:53)
[2019-08-09] MEDS: ENOXAPARIN INJ 40 MG/0.4 ML SYR SQ SCH (08:54)
[2019-08-09] MEDS: NALTREXONE HCL 50 MG TAB PO SCH (08:54)
[2019-08-09] MEDS: VITAMIN B COMPLEX TAB PO SCH (08:55)
[2019-08-09] MEDS ORDERED: AMLODIPINE BESYLATE 5 MG TAB PO SCH (09:00)
[2019-08-09] MEDS: MULTIVITAMIN TAB PO SCH (10:29)
--- NOTE | 2019-08-09 11:19 | Hospitalist Progress Note ---
Date of Service August 09, 2019 Assessment & Plan (1) Closed trimalleolar fracture: Likely secondary to mechanical fall secondary to alcoholism Status post ORIF 08/06/[address] Werner -Postop day #3 Veins stable overall Lovenox 40 mg SC daily in light of history of DVT--> will need at least 4-6 weeks contact [facility] at [phone] to schedule f/u with Dr Werner 10-12 days post op. Continue physical therapy and Occupational Therapy Alcoholism Last drink was a day of admission, alcohol level 200s -Placed on alcohol withdrawal protocol, including tapering gabapentin -No overt signs and symptoms of withdrawal during admission -Continue to monitor Dementia/cognitive impairment -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 as per recent outpatient Neuro eval -Had an episode of disorientation after surgery, has since resolved Monitor closely, watch out for delirium SSS sp PPM, paced rhythm - appropriate device function/longevity on recent outpatient [facility] cardio visit 05/2019 HTN -Continue metoprolol -Amlodipine 2.5 mg p.o. daily added for better blood pressure control Monitor blood pressure daily history PE/DVT status post Coumadin -Lovenox subcutaneous daily, need at least 4 to 6 weeks in light of ankle surgery Disposition Discharge to [facility] today Follow-up with [place] [facility] next week Follow-up with primary care physician upon discharge from rehab Subjective Follow-up for right ankle fracture, status post surgery, alcohol withdrawal Seen resting bedside chair, comfortable, not in distress Oriented x2, answers most questions appropriately States right ankle pain is well controlled Denies tremors, anxiety, hallucinations, sweating Denies chest pain, shortness of breath, headache, dizziness No other symptoms States he is ready for discharge today, patient's agrees Review of Systems Review of Systems: All systems reviewed & are unremarkable except as noted in HPI & below Physical Exam Physical Exam: General- oriented x 3, not in distress, speaks in sentences with no effort or accessory muscle use Eyes- anicteric Neck- no JVD Lungs- clear breath sounds, no crackles, no wheezing bilaterally Heart- normal rate, regular rhythm; no murmurs Abdomen- normal bowel sounds, nondistended, soft, nontender Extremities-right lower extremity: Dressing in place, no pedal edema noted, no edema in the thigh Left lower extremity: Essentially normal Neuro- alert, oriented x 3; no gross focal neurologic deficits Skin- warm & dry Results & Data Vital Signs (Past 12 Hours) Vital Signs Temp Pulse Resp BP BP Pulse Ox 08/09/19 11:10 37.0 C 74 16 119/77 97 08/09/19 07:33 37.1 C 70 16 152/93 H 97 08/09/19 04:00 36.9 C 73 18 158/90 H 93 Laboratory Results Laboratory Results - last 24 hr 08/09/19 08/09/19 06:53 06:53 WBC 7.29 RBC 3.77 L Hgb 11.9 L Hct 35.2 L MCV 93.4 MCH 31.6 MCHC 33.8 RDW Std Deviation 44.7 RDW Coeff of Carina 13.2 Plt Count 187 MPV 10.1 Immature Gran % (Auto) 0.1 Neut % (Auto) 73.7 Lymph % (Auto) 15.0 [place] % (Auto) 8.5 Eos % (Auto) 2.3 Baso % (Auto) 0.4 Immature Gran # (Auto) 0.01 Neut # (Auto) 5.37 Lymph # (Auto) 1.09 L [place] # (Auto) 0.62 H Eos # (Auto) 0.17 Baso # (Auto) 0.03 Sodium 144 Potassium 3.9 Chloride 109 H Carbon Dioxide 31 Anion Gap 4.0 BUN 16 Creatinine 0.85 Est Cr Clr Drug Dosing 74.0 Est GFR ( Amer) 96.7 Est GFR (Non-Af Amer) 83.5 BUN/Creatinine Ratio 18.7 Glucose 98 Calcium 8.5 (1) Closed trimalleolar fracture Encounter type: initial encounter Laterality: right Qualified Code(s): S82.851A - Displaced trimalleolar fracture of right lower leg, initial encounter for closed fracture
--- NOTE | 2019-08-09 11:32 | Discharge Summary ---
Date of Service August 09, 2019 Admission HPI Per Admitting Provider History obtained from patient, family, and records. History somewhat limited from patient secondary to dementia. Medical history significant for dementia, SSS sp PPM, HTN, history PE status post Coumadin, ongoing alcohol abuse. Recent confinement July 2015 for alcohol withdrawal. Patient found on the floor by upon her arrival at home. Complaining right ankle pain after falling sometime in the afternoon. Patient does not think he passed out. Patient denies chest pain, S OB, headache symptoms. Closed reduction of right ankle fracture done at the emergency room. 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 Baseline Functionality : Still able to do yard work at home without rest/exertional chest pain, S OB prior to injury Admission Exam Per Admitting Provider GENERAL: Comfortable, demented, no respiratory distress SKIN: Normal color, warm HEENT: [place] palpebral conjunctivae, no ptosis, dry buccal mucosa NECK : Supple, no tenderness CHEST : CTA, no tenderness HEART : RRR, systolic murmur ABDOMEN: Soft, nontender EXTREMITIES : RLE bandage, minimal RLE tenderness, no other conspicuous deformities noted NEUROLOGIC : Coherent, demented, slightly hard of hearing, no facial asymmetry, no other gross focality Principal Diagnosis Trimalleolar fracture, status post ORIF Discharge Exam General- oriented x 3, not in distress, speaks in sentences with no effort or accessory muscle use Eyes- anicteric Neck- no JVD Lungs- clear breath sounds, no crackles, no wheezing bilaterally Heart- normal rate, regular rhythm; no murmurs Abdomen- normal bowel sounds, nondistended, soft, nontender Extremities-right lower extremity: Dressing in place, no pedal edema noted, no edema in the thigh Left lower extremity: Essentially normal Neuro- alert, oriented x 3; no gross focal neurologic deficits Skin- warm & dry Discharge Data Allergies Allergy/AdvReac Type Severity Reaction Status Date / Time No Known Allergies Allergy Unverified 08/04/19 20:13 Consultations 08/04/19 23:13 ED Decision to Admit Stat 08/05/19 00:46 Consult Case Management - Discharge Planning Routine Consult Orthopedic Surgery Routine 08/06/19 12:53 Consult Case Management - Discharge Planning Routine Procedures Performed Operation Date: 08/06/19 07:30 Actual Procedures p Open Reduction Internal Fixation Right Ankle Fracture(Right) - Vasyl Chi M.D. Ordered Studies 08/04/19 19:42 CT cervical spine wo con Stat CT head/brain wo con Stat 08/06/19 07:00 FL ankle RT min 3V RTN Routine FL fluoroscopy <1hr Routine 08/06/19 09:19 US - OR guided needle placemen Stat Hospital Course (1) Closed trimalleolar fracture: Likely secondary to mechanical fall secondary to alcoholism Status post ORIF 08/06/[address] Chi -Postop day #3 Veins stable overall Lovenox 40 mg SC daily in light of history of DVT--> will need at least 4-6 w eeks Fall precautions please contact [facility] at [phone] to schedule f/u with Dr Chi 10-12 days post op. Continue physical therapy and Occupational Therapy Alcoholism Last drink was a day of admission, alcohol level 200s -Placed on alcohol withdrawal protocol, including tapering gabapentin -No overt signs and symptoms of withdrawal during admission -Continue to monitor Dementia/cognitive impairment -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 as per recent outpatient Neuro eval -Had an episode of disorientation after surgery, has since resolved Monitor closely, watch out for delirium SSS sp PPM, paced rhythm - appropriate device function/longevity on recent outpatient [facility] cardio visit 05/2019 HTN -Continue metoprolol -Amlodipine 2.5 mg p.o. daily added for better blood pressure control Monitor blood pressure daily history PE/DVT status post Coumadin -Lovenox subcutaneous daily, need at least 4 to 6 weeks in light of ankle surgery Urinary retention Chopra catheter placed Trial of voiding while in rehab Disposition Discharge to [facility] Follow-up with [place] [facility] next week Follow-up with primary care physician upon discharge from rehab Total Time Total Time Spent Total Time Spent (In Minutes): 45 MINUTES Discharge Plan Discharge Items Reason For Visit: ANKLE FX; HX ETOH WITHDRAWAL Discharge Diagnosis: Trimalleolar fracture, status post ORIF Condition on Discharge: Good Activity: Per Instructions section Activity Comment: DO NOT bear any weight on your right leg. Use crutches or a walker for ambulation. Bathing: Keep incision dry Weightbearing: Right non-weightbearing Non-emergency contact: Primary Care Provider Call non-emergency contact if: you have any medication questions, your symptoms worsen, your pain is not controlled, you have a fever, your wound has increased redness, your wound has increased drainage and your wound pain has increased Follow-up/Referrals: Valentin Sutherland MD [Primary Care Provider] - (1 week after discharge from rehab) Vasyl Chi M.D. [Physician] - (Next week) Diet: Heart Healthy Addtl Attending Provider Instructions: Please refer to accompanying hospital discharge summary for further details. Addtl Vamp Maker Provider Instructions: ACTIVITY RECOMMENDATIONS: Limitations: No weight bearing to affected limb at all times. Use crutches or walker for ambulation. SPECIAL CARE INSTRUCTIONS: * Some drainage onto the dressing is normal and is no cause for alarm. * Some swelling is natural especially after walking. * When resting, keep your foot elevated above the level of your heart. * Call [facility] if you notice: -Increased drainage -Fever over 101 degrees F -Severe constant pain BANDAGE: * Leave bandage/cast in place unless otherwise directed. * Keep bandage/cast dry at all times. FOLLOW UP VISIT WITH DR. CHI If appointment is not already scheduled: Please call [facility] after you get home today to schedule a follow-up appointment for [address] Chi at . Pending Studies at Discharge: No Stand-Alone Forms: My [facility] Skilled Items Patient informed of condition?: Yes DNR: No Discharge Level of Care: Acute rehab Communicable Disease: No Discharge Prognosis: Stable Lines: None Urinary Catheter: Yes Medications and DC Order Prescriptions: New enoxaparin 40 mg/0.4 mL Syringe 40 mg subcut QAM 30 Days Qty: 12 RF: 1 ferrous gluconate 324 mg (38 mg iron) Tablet 324 mg PO BIDM 30 Days Qty: 60 RF: 1 amlodipine [Norvasc] 5 mg Tablet 2.5 mg PO QAM 30 Days Qty: 15 RF: 1 folic acid 1 mg Tablet 1 mg PO QAM 30 Days Qty: 30 RF: 0 multivitamin [Daily-[place]] Tablet 1 tab PO QAM 30 Days Qty: 30 RF: 0 sennosides-docusate sodium [Senokot-S] 8.6-50 mg tablet 1 tab PO DAILY Qty: 30 RF: 0 Continued multivitamin Tablet 1 tab PO DAILY RF: 0 atorvastatin [Lipitor] 20 mg tablet 20 mg PO DAILY RF: 0 naltrexone 50 mg tablet 50 mg PO DAILY RF: 0 metoprolol tartrate 50 mg tablet 75 mg PO BID RF: 0 vitamin B complex Tablet 1 tab PO DAILY RF: 0 Admission Data Admit Date/Time: 08/04/19 23:54 Attending Provider: Chai Craig Admit Provider: Keagan Bill Primary Care Provider: Valentin Sutherland Other Providers: Keagan Bill ; Vasyl Chi
== END 2019-08-09 15:02 | DRG 493 ==
LOC: ED 19:17 → 2W 23:54